=== PATIENT | male | born 1975 | race Caucasian/White ===

== ENCOUNTER 2019-09-26 16:34 | Emergency (ER) | payer MEDICARE, MEDICAID ==
[~2019-09-26] VITALS: Ht 180.3 cm; Wt 125.0 kg
[~2019-09-26 16:34] MED LIST: DIPH25CA83 PO; OMEP20CA15 PO; RISP120S SQ; RISP2TAB3 PO
[2019-09-26] MEDS ORDERED: normal saline 1000ML IV soln IV ONE (16:40)
[2019-09-26 17:14] LABS: BASOPHILS % (AUTO) 0.4 % (0-1); EOSINOPHILS # (AUTO) 0.1 X10'3 (0-0.9); EOSINOPHILS % (AUTO) 0.5 % (0-6); HEMATOCRIT 44.1 % (42.0-52.0); LYMPHOCYTES # (AUTO) 1.5 X10'3 (1.1-4.8); LYMPHOCYTES % (AUTO) 14.2 % (21-51); MEAN CORPUSCULAR HEMOGLOBIN 29.2 PG (27.0-31.0); MEAN CORPUSCULAR VOLUME 85.8 FL (78-98); MONOCYTES # (AUTO) 0.8 X10'3 (0-0.9); MONOCYTES % (AUTO) 7.8 % (2-12); NEUTROPHILS # (AUTO) 7.9 X10'3 (1.8-7.7); NEUTROPHILS % (AUTO) 77.1 % (42-75); PLATELET COUNT 311 X10'3 (140-440); RED BLOOD COUNT 5.14 X10'6 (4.70-6.10); RED CELL DISTRIBUTION WIDTH 12.9 % (11.5-14.5); WHITE BLOOD COUNT 10.3 X10'3 (4.5-11.0)
[2019-09-26 17:28] LABS: ALANINE AMINOTRANSFERASE 57 U/L (12-78); ALBUMIN 4.7 G/DL (3.4-5.0); ALBUMIN/GLOBULIN RATIO 1.4 (1.1-1.5); ALKALINE PHOSPHATASE 75 IU/L (46-116); ANION GAP 19 (8-16); ASPARTATE AMINO TRANSFERASE 30 U/L (10-37); BILIRUBIN,TOTAL 1.6 MG/DL (0.1-1.0); BLOOD UREA NITROGEN 21 MG/DL (7-18); BUN/CREATININE RATIO 13.2 (5.4-32.0); CALCIUM 9.1 MG/DL (8.5-10.1); CHLORIDE 102 MMOL/L (99-107); CREATININE 1.59 MG/DL (0.60-1.10); GLUCOSE 136 MG/DL (70-104); POTASSIUM 3.8 MMOL/L (3.5-5.1); SODIUM 141 MMOL/L (135-145); TOTAL CARBON DIOXIDE 20.2 MMOL/L (24-32); TOTAL PROTEIN 8.1 G/DL (6.4-8.2); eGFR 48 ML/MIN
[2019-09-26] MEDS ORDERED: ziprasidone IM 20mg inj **IM only IM ONE (17:35)
[2019-09-26] MEDS ORDERED: diphenhydrAMINE 50 mg/ml inj IM ONE (17:35)
[2019-09-26 17:40] LABS: ETHANOL < 0.010 GM/DL (0.0-0.010)
[2019-09-26 18:30] VITALS: BP 172/96
--- NOTE | 2019-09-26 18:43 | NUR ---
ASSUMED CARE OF PT FROM Precious BURNETT RN. PT REMAINS, DISORIENTED, PARANOID THOUGHT, DISTURBED THOUGHT PROCESS,AND IS UNCOOPERATIVE. PT STATES HE WANT THE IV OU AND "I DON'T NEED THIS IV PLEASE TAKE IT OUT" HE ATTEMTED TO TAKE IT OUT AND I ASKED HIM TO ALLOW US TO GIVE HIM THE FLUIDS THEN I OUWLD TAKE IT OUT. HE TURNED HIS HEAD AND STARTED AT THE WALL. PT IS NOT INTERACTING APPROPRIATELY. WILL NOT CONFIRM WHAT HIS NAME IS. DOES HAVE A CELL PHONE BUT IT IS WITH BATTERY.
--- NOTE | 2019-09-26 19:16 | NUR ---
DR. LUNA AWARE PT HAS NOT GIVEN URINE YET. PT GIVEN GEODON AND BENEDRYL IM.
--- NOTE | 2019-09-26 19:16 | NUR ---
PT STILL INFUSING HIS 2 LITERS OF NS HIS R AC PIV IS VERY POSITIONAL AND PT KEEPS BENDING IT.
--- NOTE | 2019-09-26 19:20 | NUR ---
pt chnaged into greens
--- NOTE | 2019-09-26 19:32 | NUR ---
belonging list completed pt has not sign he refused
--- NOTE | 2019-09-26 19:53 | NUR ---
Assumed care of pt. and pt. brought to overflow room 25, pt. would not talk to me when I went to assess him, pt. pulled his blanket over his head and turned away from me on the bed. Pt. resting queitly on left side, respirations WNL even and unlabored, no signs or symptoms of distress.
--- NOTE | 2019-09-26 23:03 | NUR ---
Pt. awake and talking non-coherently, pt. able to state name, but unable to answer other questions.
--- NOTE | 2019-09-26 23:41 | NUR ---
Pt. awoke and started talking to him self, rambling non-coherent phrases. Pt. asked if he is able to give a urine sample, pt. responded by saying "I will try" multiple times, before rolling over on left side and closing eyes. Pt. now resting quietly repirations WNL even and unlabored, no signs or symptoms of distress.
--- NOTE | 2019-09-27 01:19 | NUR ---
Pt. resting quietly repirations WNL even and unlabored, no signs or symptoms of distress.
--- NOTE | 2019-09-27 01:43 | NUR ---
pt appears to be sleeping peacefully on back, respirations even and unlabored, no s/s distress at this time.
[2019-09-27] MEDS ORDERED: NO HOME MEDS (02:18)
--- NOTE | 2019-09-27 02:27 | NUR ---
pt awake in bed talking to self. disorganzied and nonsensical statements. pt will not answer direct questions and states "please leave me alone" when this RN trying to assess and ask questions. will continue to montior.
--- NOTE | 2019-09-27 02:55 | NUR ---
pt demanding of staff; requesting 2 sandwiches and 2 tall glasses of water since staff "didnt feed me yesterday and i'm starving." given 1 sandwich and 1 large glass of water. pt states "thats not what I asked for." pt then refuses to answer any further questions. pt asked to keep voice down as he continues to talk to self. states "I don't want any medications." pt up and ambulating around bed and refusing staff request for urine sample. states "theres a bathroom right across the [address] I dont need the cup." pt irritable and hostile.
--- NOTE | 2019-09-27 03:02 | NUR ---
pt ambulated to bathroom without issue. ignored staff when requested pt take urine cup with him to provide sample. pt continues to be hostile and rude towards staff.
--- NOTE | 2019-09-27 03:25 | NUR ---
pt argumentative with staff regarding hold status and providing urine sample. pt no longer appears to be responding any auditory/visual hallucinations. states he does not have to give urine. educated pt on why urine is required for [facility] to see pt in AM and for possible placement if indicated by [facility]. pt continues to argue. pt is now tracking/following conversations without issue. redirect pt to bed where pt is eating sandwich. will continue to attempt to obtain urine sample.
--- NOTE | 2019-09-27 04:43 | NUR ---
pt resting comfortably on left side. pt in supine position. pt is mumbling to self. will continue to montior.
--- NOTE | 2019-09-27 05:20 | NUR ---
WHILE REMOVING PT IV, PT STATES "NO LEAVE IT I NEED IT FOR EVIDENCE." EXPLAINED TO PT HE NO LONGER NEEDS THE IV AND IV MUST BE REMOVED SINCE PT IS IN OVERFLOW. PT ALLOWED REMOVAL OF IV AND THEN BECAME AGITATED WHEN THE TECH ATTEMPTED TO OBTAIN MORNING VITAL SIGNS. PT IS REFUSING VITAL SIGNS AT THIS TIME AND REFUSING TO PROVIDE URINE SAMPLE. REITERATED TO PT THE IMPORTANCE OF THE URINE SAMPLE FOR [facility] TO SEE PT IN THE AM. PT CONTINUES TO BE HOSTILE, NONCOMPLIANT, AND IRRITABLE WITH STAFF STATING "LEAVE ME ALONE. GO AWAY." WILL CONTINUE TO MONITOR PT AND ENCOURAGE COMPLIANCE.
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
--- NOTE | 2019-09-27 06:30 | NUR ---
pt is talking to himself
--- NOTE | 2019-09-27 07:30 | NUR ---
pt talking non stop to self
--- NOTE | 2019-09-27 08:30 | NUR ---
pt is talking to himself. pt does not make sense
--- NOTE | 2019-09-27 09:39 | NUR ---
Breaking primary RN, pt is talking to himself and others who are not there
--- NOTE | 2019-09-27 10:30 | NUR ---
pt refuses to give a urine sample and refuses to have a straight cath.
--- NOTE | 2019-09-27 11:30 | NUR ---
pt continues to talk to himself
--- NOTE | 2019-09-27 12:02 | NUR ---
PT CONTINUES TO TALK TO HISELF AND OTHERS WHO ARE NOT PRESENT
--- NOTE | 2019-09-27 12:30 | NUR ---
pt eating lunch no issues
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
--- NOTE | 2019-09-27 15:00 | NUR ---
pt is talking to himself
--- NOTE | 2019-09-27 17:38 | NUR ---
PT REFUSED VITAL SIGNS.
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
--- NOTE | 2019-09-27 20:04 | NUR ---
The patient is talking loudly to people that are not there. He can be redirected for a very brief period but then begans to talk to himself again.
[2019-09-27 20:29] LABS: URINE AMPHETAMINE SCREEN NEGATIVE (Neg); URINE BARBITUATE SCREEN NEGATIVE (Neg); URINE BENZODIAZEPINES SCREEN NEGATIVE (Neg); URINE CANNABINOID SCREEN NEGATIVE (Neg); URINE COCAINE SCREEN NEGATIVE (Neg); URINE METHADONE SCREEN NEGATIVE (Neg); URINE OPIATE SCREEN NEGATIVE (Neg); URINE PHENCYCLIDINE SCREEN NEGATIVE (Neg)
[2019-09-27] MEDS ORDERED: risperiDONE 2mg tablet PO ONE (20:35)
[2019-09-27] MEDS ORDERED: LORazepam 1 MG tablet PO ONE (20:35)
--- NOTE | 2019-09-27 21:03 | NUR ---
The patient is up and agitated. Stating he can't be held against his will and he doesn't have a criminal record. He did take PO medications a short while ago and he is currently laying back on his bed.
[2019-09-27] MEDS: ziprasidone 20mg capsule PO ONE ×2 (21:45→21:52)
[2019-09-27] MEDS ORDERED: ziprasidone IM 20mg inj **IM only IM ONE (21:55)
--- NOTE | 2019-09-27 22:03 | NUR ---
The patient up and wandering up to closed doors and trying to open them and believes he is hearing some one he knows. He was offered geodon 40mg and he refused. THe patient was difficult to redirect with some posturing. MD made aware of order given for IM geodon. The patient was told that he had to be quiet and respectful of peers and that it was 10 at night and that he also could not wander off the unit and he now appears to suddenly be asleep so IM med being held at this time.
--- NOTE | 2019-09-27 22:36 | NUR ---
The patient appears to be sleeping.
--- NOTE | 2019-09-27 23:24 | NUR ---
The patient is awake and is angry and swearing in response to voices. Attempted one to one with the patient but he replied angerily "get out of my face"
--- NOTE | 2019-09-28 00:06 | NUR ---
The patient is currently resting quietly on his bed.
--- NOTE | 2019-09-28 01:17 | NUR ---
The patient is resting on his bed and talking to people who are not there.
--- NOTE | 2019-09-28 02:17 | NUR ---
The patient continues to talk to people who are not there
--- NOTE | 2019-09-28 03:49 | NUR ---
The patient continues to have converstations with people who are not there
--- NOTE | 2019-09-28 05:51 | NUR ---
The patient continues to have animated converstations with people who are not there
--- NOTE | 2019-09-28 07:21 | NUR ---
asleep no resp dist
[2019-09-28] MEDS ORDERED: ziprasidone 20mg capsule PO SCH (08:00)
--- NOTE | 2019-09-28 08:02 | NUR ---
in bedtalking to self under his breath
--- NOTE | 2019-09-28 09:29 | NUR ---
Resting in bed no resp distress
--- NOTE | 2019-09-28 10:18 | NUR ---
asleep no resp dist
--- NOTE | 2019-09-28 11:41 | NUR ---
Resting in bed no resp distress
--- NOTE | 2019-09-28 12:05 | NUR ---
Carolina santiago from [facility] here to jerald pt. pt refused any additional medication. stated just want to be left alone.
--- NOTE | 2019-09-28 12:11 | NUR ---
Resting in bed no resp dist
--- NOTE | 2019-09-28 13:56 | NUR ---
Resting in bed no resp distress
--- NOTE | 2019-09-28 14:04 | NUR ---
Resting in bed no resp distress
== END 2019-09-28 14:04 ==
LOC: ER 16:34 → EDBD 16:34 → ER 09-28 14:04
DX: F23 Brief psychotic disorder (principal); T68.XXXA Hypothermia, initial encounter
CPT/HCPCS: 36415; 80053; 80305; 80320; 84443; 85025; 96372; 99285; J1200; J3486; J7030

== ENCOUNTER 2019-09-28 13:53 | Inpatient (IN) | payer MEDICARE, MEDICAID ==
[~2019-09-28] VITALS: Ht 180.3 cm; Wt 114.8 kg
[~2019-09-28 13:53] MED LIST changes: +NO HOME MEDS
[2019-09-28] MEDS ORDERED: loperamide 2mg capsule PO PRN (14:45)
[2019-09-28] MEDS ORDERED: mag hydrox/Alum hydrox/simeth 30ml oral suspension PO PRN (14:45)
[2019-09-28] MEDS ORDERED: acetaminophen 325mg tablet PO PRN ×2 (14:45)
--- NOTE | 2019-09-28 14:54 | NUR ---
Admission: Pt admitted on 5150 for DTS at 1435 from ER overflow. Pt escorted up with male staff and security. Pt extremely delusional and paranoid. Pt safety check completed with metal detector wand. Pt arrived without a shirt and hospital scrub pants. Pt refused skin check and refused MRSA swab. Pt would not even enter the shower room for skin check. Pt stating, "I'm not on drugs". Pt brought to room and given sandwich and water. Pt refused admission assessment.
--- NOTE | 2019-09-28 16:03 | NUR ---
CM: Pt's brother called left his contact info: Carlito Cortez [phone] Carlito informed nursing staff that pt had attempted suicide 4-5x when he lived w/Carlito. Pt was going to be conserved in the state of [place] but pt left the state. Carlito is requesting a t/c with . Winter Edwards ASSISTANT WOMENS VOLLEYBALL COACH Addendum: 09/28/19 at 1608 by Winter Edwards Amended: Links added.
--- NOTE | 2019-09-28 16:33 | NUR ---
CM SS had t/c with pt's [employer] CM, per t/c, they've located pt's car, pt's employer will keep pt's job for him, [employer] is working w/pt's landlord to avoid an eviction and landlord appears to be receptive but would like pt to follow healthcare providers' recommendations. SS attempted to give pt the info however, pt was still too anxious and paranoid at this time. SS consulted w/pt's RN, per consultation, RN will attempt to update pt later. SS will meet w/pt tomorrow and engage him in completing a psychosocial assessment. Winter Edwards LCSW Addendum: 09/28/19 at 1644 by Winter dEwards Amended: Links added.
--- NOTE | 2019-09-29 00:21 | NUR ---
Nursing Progress Note: Sukhjinder Legal hold: 5150 Client on involuntary status for GD/DTS. Report received from ALTON Tim nurse with use of SBAR. Why are they here: Pt admitted from over flow and placed on 5150 for DTS. He was [place] in the [place], refused any help stating that he wanted to drown in the river. He was extremely paranoid and delusional. Assessment What has happened this shift: PT was in his room during shift change, appears to be drawing something. States he is doing good. PT refused VS, but was cooperative for all other care. PT states that he feels really emotional and also having some anxiety over his current situation. Asked him if he was willing to take some medication for it but he refused. He states that he is just trying to express his emotions. He talked about how he walked for 2 days. Asked pt why he had walked for 2 days, he states he was trying to get to his trailer after being released from long term but he states it was for nothing because the driver's license examiner and these mental health people came to get me. I was just trying to express my emotions and be accepted by other people. He talked about how when he went to long term, they didnt give his belongings back, such as his wallet with his ID. He also talked about how when he was in his apartment his tub kept overflowing. For some reason, he kept perseverating on his bath tub being over flown. Some of the things he was saying really didnt make much sense. He did get emotional and teary because he felt like everybody was against him and he just wanted to be accepted. He also talked about his ex- and his daughter. He was cooperative during 1:1 physical assessment and states that he felt really sad and just wanted to go to sleep. Will continue to monitor. S/I, H/I: Denies A/VH: Denies Sleep: Pt had trouble sleeping, see sleep assessment for total hours ADL's: Independent Group attendance: None during quality assurance monitor body Were meds taken: None Any med S/E: N/A Mental Status Exam Appearance: Appropriate, wearing green unit scrubs Eye contact: Minimal Behavior: Guarded at first, paranoid, isolative Speech: Clear, normal rate and rhythm Mood: Depressed, anxious, "I'm really sad", becomes teary Affect: Flat Thought process: Disorganized, delusional Thought Content: Events that brought him here, paranoid delusions, his family Cognition: Alert and oriented X3 Insight: Poor Judgment: Poor Interventions PRN's used: None Therapeutic interventions: 1:1 assessment, encouragement to express thoughts and feelings, active listening, monitoring of behaviors with intervention; limit setting and redirection as needed, maintained Q 15 minute safety checks, monitor medication therapeutic and side effects. Restraints/seclusion/emergency medication: N/A Justification of Continued Inpatient Treatment: Pt needs stabilization, she continues to require a safe and supportive environment with medication adjustments and monitoring to decrease risk of rehospitalization. Addendum: 09/29/19 at 0514 by Ashley Patel RN Pt was awake for most of the night talking to himself. Asked pt again if he wanted something to help him sleep or for anxiety, he refused.
[2019-09-29] MEDS: LORazepam 1 MG tablet PO PRN ×2 (07:39→16:45)
[2019-09-29 08:00] VITALS: BP 183/116
[2019-09-29 08:35] LABS: CHOLESTEROL 151 MG/DL (0-200); HDL CHOLESTEROL 38 MG/DL (35-60); LDL CHOLESTEROL 100 MG/DL (50-100); TRIGLYCERIDES 62 MG/DL (20-135)
[2019-09-29 08:37] LABS: HEMOGLOBIN A1C 5.1 % (4.5-6.2)
[2019-09-29] MEDS ORDERED: amLODIPine 5mg tablet PO ONE (12:40)
--- NOTE | 2019-09-29 14:54 | NUR ---
Nursing Progress Note Legal hold: 5150 Client on involuntary status for GD/DTS. Report received from ALTON Díza nurse with use of SBAR. Why are they here: Pt admitted from over flow and placed on 5150 for DTS. He was [place] in the [place], refused any help stating that he wanted to drown in the river. He was extremely paranoid and delusional. Assessment What has happened this shift: During AM assessment this nurse encouraged the pt to allow the techs to obtain his VS. Pt agreed. His BP was 183/116 with a HR of 103. Per Dr. Mireles Amlodipine Besylate 1 tab daily was prescribed around 1300. At 1300 pt refused to have his BP taken and said to this nurse, "you are not going to align me and do this to me; I know what you are trying to do, please leave now." He then shoved the pillow under his head and closed his eyes. This nurse agreed to leave for one hour. An hour later he allowed his BP to be redone it was 181/115 he refused to take the Amlodipine. This morning he agreed to take Ativan 1mg and 45min later took another one. During breakfast this morning he sat on the wall in a chair behind the wall that sits in the middle of the room with his tray in his lap and was seen talking out loud. He was heard saying, "I'm going to need a dyer helperKamaljit." He continued looking up to the ceiling saying things out loud then taking a bite of food then doing it again. It sounds like he is fixated on feather renovator, court, the law, police etc. S/I, H/I: Denies A/VH: Appears to be RIS Sleep: Napped during the afternoon ADL's: Independent Group attendance: No Were Meds taken: Yes he agreed to Ativan 1mg PO x2 Any med S/E: N/A Mental Status Exam Appearance: wore the same green unit scrubs as last night Eye contact: Avoids Behavior: Guarded, hallucinations Speech: Clear, pressured Mood: Depressed; irritable Affect: Blunted Thought process: Disorganized, delusional Thought Content: fixed delusions regarding the law and court proceedings Cognition: A/Ox3 Insight: Poor Judgment: Poor Interventions PRN's used: Ativan Therapeutic interventions: 1:1 assessment, provided therapeutic communication with active listening, monitoring of behaviors; medication administration/education/monitoring for SE's; maintained Q 15 minute safety checks, Restraints/seclusion/emergency medication: N/A Justification of Continued Inpatient Treatment: Pt needs stabilization, he requirers a safe and supportive environment with medication adjustments and monitoring to decrease risk of rehospitalization.
--- NOTE | 2019-09-30 01:02 | NUR ---
Nursing Progress Note: Sukhjinder Legal hold: 5150 Client on involuntary status for GD/DTS. Report received from ALTON Tim nurse with use of SBAR. Why are they here: Pt admitted from over [facility] and placed on 5150 for DTS. He was found in the [place], refused any help stating that he wanted to drown in the river. He was extremely paranoid and delusional. Assessment What has happened this shift: Pt was in his room during shift change. Appeared to be responding to internal stimuli as he was talking to himself. Was observed out of his room for some time. When this RN attempted to perform mental health and physical assessment, pt states NO, just go away, Im tired of you asking. I want you to leave me alone and stop bugging me. He also states that if for some reason he went into cardiac arrest, or any other medical emergency, that he wanted us to do everything possible to keep him alive. He is very irritable and will not answer any of my questions. He also asked this RN whats your title, and name Even though he was informed of this at the beginning of shift. This RN attempted multiple times to work with patient but he only got more irritable. Later on, pt was requesting to have IV fluids, stating that he felt like he was having a heart attack. This RN asked pt a couple of questions to assess his condition but pt refused to answer any questions, and also would not allow for this RN on any tech to perform vital sign. Informed him that there was nothing we could do and encouraged him to drink fluids po. Pt continues to talk to himself throughout the night but refuses any kind of medication offered to him. Will continue to monitor. S/I, H/I: Unable to assess A/VH: Pt would not answer but is observed responding to internal stimuli, talking to himself, naming several different people Sleep: As of this note, pt has not had any sleep. ADL's: Independent Group attendance: None during estate tax examiner Were meds taken: None, pt refused all prn medications offered Any med S/E: N/A Mental Status Exam Appearance: Appropriate, personal clothing Eye contact: Good, direct Behavior: Resistive to care, paranoid, irritable Speech: Clear, normal rate and rhythm Mood: Depressed, labile, angry at times Affect: Flat Thought process: Disorganized, delusional Thought Content: Wanting IV fluids, wants to be left alone, has conversation with unknown people Cognition: Alert and oriented X3 Insight: Poor Judgment: Poor Interventions PRN's used: None Therapeutic interventions: 1:1 assessment, encouragement to express thoughts and feelings, active listening, monitoring of behaviors with intervention; limit setting and redirection as needed, maintained Q 15 minute safety checks, monitor medication therapeutic and side effects. Restraints/seclusion/emergency medication: N/A Justification of Continued Inpatient Treatment: Pt needs stabilization, she continues to require a safe and supportive environment with medication adjustments and monitoring to decrease risk of rehospitalization.
[2019-09-30] MEDS: risperiDONE 0.5mg tablet PO SCH ×2 (08:00→20:00)
[2019-09-30] MEDS: amLODIPine 5mg tablet PO SCH (08:00)
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
[2019-10-01] MEDS: amLODIPine 5mg tablet PO SCH (08:00)
[2019-10-01] MEDS: risperiDONE 0.5mg tablet PO SCH ×2 (08:00→17:47)
--- NOTE | 2019-10-01 08:00 | NUR ---
Pt refused VS, assessment and medications.
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
[2019-10-01] MEDS ORDERED: LORazepam 1 MG tablet PO ONE (17:40)
[2019-10-01] MEDS ORDERED: olanzapine 10mg tablet PO STA (17:40)
[2019-10-01] MEDS: LORazepam 1 MG tablet PO PRN (17:47)
[2019-10-01] MEDS: diphenhydrAMINE 25mg capsule PO PRN (17:48)
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
[2019-10-02] MEDS: amLODIPine 5mg tablet PO SCH (08:00)
[2019-10-02] MEDS: risperiDONE 0.5mg tablet PO SCH ×2 (08:00→20:46)
--- NOTE | 2019-10-02 08:30 | NUR ---
Pt refused VS's today
[2019-10-02] MEDS ORDERED: olanzapine 10mg tablet PO ONE (09:15)
[2019-10-02] MEDS ORDERED: LORazepam 1 MG tablet PO ONE (09:15)
[2019-10-02] MEDS: diphenhydrAMINE 25mg capsule PO PRN ×2 (09:25→20:46)
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
[2019-10-02] MEDS ORDERED: OLANZapine 5mg rapidly disint. tablet PO PRN (19:25)
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
[2019-10-03] MEDS: risperiDONE 0.5mg tablet PO SCH ×2 (08:00→20:00)
[2019-10-03] MEDS: amLODIPine 5mg tablet PO SCH (08:00)
[2019-10-03] MEDS ORDERED: OLANZapine 2.5MG tablet PO PRN (17:00)
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
[2019-10-04] MEDS: amLODIPine 5mg tablet PO SCH (08:00)
[2019-10-04] MEDS: risperiDONE 0.5mg tablet PO SCH (08:00)
[2019-10-04] MEDS ORDERED: polyethylene glycol 3350 17gm powd pack PO ONE (09:05)
--- NOTE | 2019-10-04 09:35 | NUR ---
CM Presenting Issues: Pt still refuses to sign GEORGE to allow SS to coordinate services with community providers and/or speak with family members. Interventions: SS received t/c from pt's [facility] CM with update re pt's housing issues, [facility] CM reports that pt may loose his housing if he refuses to take meds. Pt has a [place] Hearing today, it is expected that the Court will order pt to comply with medication treatment. Plan: SS will continue to monitor & provide 1:1 support for pt during his stay @ [facility]. Winter Edwards LCSW Addendum: 10/05/19 at 0945 by Winter Edwards Amended: Links added.
[2019-10-04] MEDS ORDERED: RISPERIDONE SQ ONE ×2 (14:05→14:30)
[2019-10-04] MEDS ORDERED: OLANZapine 2.5MG tablet PO ONE (14:40)
[2019-10-04] MEDS ORDERED: OLANZapine **IM** 10 mg inj. IM ONE (14:40)
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
[2019-10-04] MEDS: magnesium hydroxide 30ml (MOM) UD suspension PO PRN (20:40)
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
[2019-10-05] MEDS: amLODIPine 5mg tablet PO SCH (08:00)
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
--- NOTE | 2019-10-05 11:00 | NUR ---
CM Presenting Issues: Pt was reissed yesterday, and is isolating in his room. Interventions: SS met w/pt at bedside to provide 1:1 support, pt was staring out the window and talking to himself, he acknowledged SS w/o making eye contact, and states, "could you leave I don't want to talk to a social work lecturer right now". Plan: SS will continue to check-in w/pt to monitor progress. Winter Edwards LCSW Addendum: 10/05/19 at 1105 by Winter Edwards Amended: Links added.
--- NOTE | 2019-10-05 13:04 | NUR ---
Great appetite, eating well, 75-100% PO intake of regular diet. 10/04 last BM. No nutrition problem. Rec: 1. continue regular diet 2. bowel care as needed 3. weekly wts Addendum: 10/05/19 at [address] Amended: Links added.
--- NOTE | 2019-10-05 16:40 | NUR ---
Nursing Progress Note: Legal hold: 5250 Client on involuntary status for GD/DTS. Report received from RN with use of SBAR. Why are they here: Pt admitted from over flow and placed on 5150 for DTS. He was [place] the [place], refused any help stating that he wanted to drown in the river. He was extremely paranoid and delusional. Assessment What has happened this shift: Received Pt awake and talking to himself in his room. Pt was speaking angrily and threateningly to AHs or some internal stimuli. Able to stop and answer with one word to a question. Pt refused vitals and ate breakfast in community room. Pt refused his one AM med (amlodipine), stating I dont have high blood pressure. Attempts to explain were met with hostolity and resistance to care. Pt spent most of morning in room talking while looking out the window. He became less irritable and asked for water multiple times throughout the day. Got pts weekly weight and he was cooperative and thankful for getting him water. Pt cooperative around meals. Overall resistive to care and paranoid. S/I, H/I: Denies A/VH: Talks/yells to self Sleep: None this shift ADL's: Independent Group attendance: No Were Meds taken: Pt refused Any med S/E: N/A Mental Status Exam Appearance: Casual/ Dodgers shirt and shorts Eye contact: Poor Behavior: Guarded, Paranoid Speech: Clear, pressured Mood: Labile Affect: Blunted Thought process: Disorganized, paranoid Thought Content: Anger at voices, getting water Cognition: A/Ox3 Insight: Impaired Judgment: Impaired Interventions PRN's used: Therapeutic interventions: Encouraged and educated pt to the purpose of the AM, 1:1 assessment; provided therapeutic communication with active listening; monitoring of behaviors; provided medication administration/education/monitoring; maintained Q 15 minute safety checks. Restraints/seclusion/emergency medication: N/A Justification of Continued Inpatient Treatment: Pt continues to need mental health stabilization, he requirers a safe and supportive environment with medication adjustments and monitoring to decrease risk of rehospitalization.
--- NOTE | 2019-10-06 00:54 | NUR ---
Nursing Progress Note: Legal hold: 5250 Client on involuntary status for GD/DTS. Report received from ALTON Bernal nurse with use of SBAR. Why are they here: Pt admitted from over flow and placed on 5150 for DTS. He was found in the [place], refused any help stating that he wanted to drown in the river. He was extremely paranoid and delusional. Assessment What has happened this shift: Pt was sitting up in his chair in his room at shift change looking out the window, talking to himself. Write approaches pt, but he refuses to turn around and look at marketing writer. He also refuses vital signs. When asked if he is experiencing any AH/VH he responds, "no never, I do not have any of that I am not schizophrenic." He is delusional and tangential but remains pleasant. He is still very resistive to care and refuses 1:1 physical assessment. S/I, H/I: Does not endorse A/VH: +A/VH, Will not endorse but is observed to respond to stimuli Sleep: See Sleep Assessment. ADL's: Independent Group attendance: N/A Were meds taken: No meds scheduled HS Any med S/E: None reported nor observed Mental Status Exam Appearance: Appropriate, personal clothing and nonskid socks Eye contact: Fair Behavior: Isolating to his room Speech: Clear Mood: Irritable Affect: Flat Thought process: Paranoid, thought blocking Thought Content: not trusting of staff Cognition: A/Ox2 Insight: Poor Judgment: Poor Interventions PRN's used: Therapeutic interventions: monitoring of behaviors with intervention; limit setting and redirection as needed, maintained Q 15 minute safety checks, monitor medication therapeutic and side effects. Restraints/seclusion/emergency medication: NA Justification of Continued Inpatient Treatment: Pt needs stabilization, he continues to require a safe and supportive environment with medication adjustments and monitoring to decrease risk of re-hospitalization. Per PA notes, pt lacks insight to his illness and once stabilized will return home if landlord accepts.
[2019-10-06] MEDS: amLODIPine 5mg tablet PO SCH (08:00)
--- NOTE | 2019-10-06 16:07 | NUR ---
Nursing Progress Note: [place] Legal hold: 5250 Client on involuntary status for GD/DTS. Report received from Kiki DANG Why are they here: Pt admitted from over flow and placed on 5150 for DTS. He was [place] the [place], refused any help stating that he wanted to drown in the river. He was extremely paranoid and delusional. Assessment What has happened this shift: Pt was sitting up in his chair in his room at shift change looking out the window, talking to himself. Client eye contact is minimal and he is not interested in talking to staff or making his needs known. He refused vital signs and medications this am and tends to isolate in his room. No behavioral issues. Client is visible on the unit and still appears to be actively responding to internal stimuli. Client was approached this afternoon with the idea of changing rooms. Client became angry and demanded not to be moved stating, " I am not leaving, I am safe here". Insight is very limited and client still feels as though he is being held under false pretenses and wants to be released. Client isolated in his room this afternoon with no behavioral challenges. S/I, H/I: Does not endorse A/VH: +A/VH, Will not endorse but is observed to respond to stimuli Sleep: See Sleep Assessment. ADL's: Independent Group attendance: no Were meds taken: no Any med S/E: None reported nor observed Mental Status Exam Appearance: Appropriate, personal clothing and nonskid socks Eye contact: Fair Behavior: Isolating to his room Speech: Clear Mood: Irritable Affect: Flat Thought process: Paranoid, thought blocking Thought Content: not trusting of staff Cognition: A/Ox2 Insight: Poor Judgment: Poor Interventions PRN's used: Therapeutic interventions: monitoring of behaviors with intervention; limit setting and redirection as needed, maintained Q 15 minute safety checks, monitor medication therapeutic and side effects. Restraints/seclusion/emergency medication: NA Justification of Continued Inpatient Treatment: Pt needs stabilization, he continues to require a safe and supportive environment with medication adjustments and monitoring to decrease risk of re-hospitalization. Per PA notes, pt lacks insight to his illness and once stabilized will return home if landlord accepts.
[2019-10-06] MEDS ORDERED: haloperidol lactate 5mg/ml inj IM PRN (16:50)
[2019-10-06] MEDS: risperiDONE 0.5mg tablet PO SCH (21:23)
--- NOTE | 2019-10-07 05:13 | NUR ---
Nursing Progress Note: Legal hold: 5250 Client on involuntary status for GD/DTS. Report received from RN nurse with use of SBAR. Why are they here: Pt admitted from over [facility] and placed on 5150 for DTS. He was [place] in the [place], refused any help stating that he wanted to drown in the river. He was extremely paranoid and delusional. Assessment What has happened this shift: Patient observed laying in bed at the beginning of shift. Remains resistive to care. Patient denies SI, HI, A/VH but appears preoccupied. He refused to answer further questions, stating, "that is personal." He was compliant with medication but tossed med cup at told poem writer, "get out now." Patient refused HS snack and remained in bed throughout this shift. Does not appear to be having difficulty sleeping. S/I, H/I: Denied A/VH: Denied but appears preoccupied Sleep: Refer to sleep assessment ADL's: Independent Group attendance: No groups this shift Were meds taken: Yes Any med S/E: None reported nor observed Mental Status Exam Appearance: Appropriate, personal clothing and nonskid socks Eye contact: Fair Behavior: Isolating to his room, resistive to care Speech: Clear, audible Mood: Irritable Affect: Flat Thought process: Paranoid, thought blocking Thought Content: Unable to assess Cognition: A/Ox2 Insight: Poor Judgment: Poor Interventions PRN's used: None Therapeutic interventions: monitoring of behaviors with intervention; limit setting and redirection as needed, maintained Q 15 minute safety checks, monitor medication therapeutic and side effects. Restraints/seclusion/emergency medication: NA Justification of Continued Inpatient Treatment: Pt needs stabilization, he continues to require a safe and supportive environment with medication adjustments and monitoring to decrease risk of re-hospitalization. Per PA notes, pt lacks insight to his illness and once stabilized will return home if landlord accepts.
[2019-10-07] MEDS: risperiDONE 0.5mg tablet PO SCH ×2 (07:40→20:51)
[2019-10-07] MEDS: amLODIPine 5mg tablet PO SCH (08:00)
--- NOTE | 2019-10-07 17:23 | NUR ---
Nursing Progress Note: Legal hold: 5250 Client on involuntary status for GD/DTS. Report received from Kiki DANG Why are they here: Pt admitted from over flow and placed on 5150 for DTS. He was found in the [place], refused any help stating that he wanted to drown in the river. He was extremely paranoid and delusional. Assessment What has happened this shift: Patient in bed at shift change talking to himself laying in bed. Patient stated he would not take his medications and attempted to refuse. Refused his Norvasc, but ended up taking Risperdone. Patient refused vitals. Patient spent most of the day talking out loud to himself, but was able to be out of his room more walking hallways and sitting in community room. Patient does not want to interact with staff, and wishes to be left alone. S/I, H/I: Denies. A/VH: Denies, but appears to be responding to internal stimuli. Sleep: No naps. ADL's: Independent Group attendance: no Were meds taken: Yes, except Norvasc. Any med S/E: None reported nor observed Mental Status Exam Appearance: Disheveled, wearing same clothing. Eye contact: Avoids Behavior: More social today. In community room appropriate. Speech: Clear, loud. Mood: Irritable Affect: Labile. Thought process: Paranoid, thought blocking Thought Content: not trusting of staff. Not wanting to take medications. Cognition: A/Ox2 Insight: Poor Judgment: Poor Interventions PRN's used: None. Therapeutic interventions: monitoring of behaviors with intervention; limit setting and redirection as needed, maintained Q 15 minute safety checks, monitor medication therapeutic and side effects. Restraints/seclusion/emergency medication: NA Justification of Continued Inpatient Treatment: Pt needs stabilization, he continues to require a safe and supportive environment with medication adjustments and monitoring to decrease risk of re-hospitalization. Per PA notes, pt lacks insight to his illness and once stabilized will return home if landlord accepts.
--- NOTE | 2019-10-08 04:36 | NUR ---
Nursing Progress Note: Legal hold: 5249 Client on involuntary status for GD/DTS. Report received from Gabe DAVEY nurse with use of SBAR. Why are they here: Pt admitted from over flow and placed on 5150 for DTS. [place] was [place], refused any help stating that he wanted to drown in the river. He was extremely paranoid and delusional. Assessment What has happened this shift: Patient walking the unit at the beginning of shift. Remains resistive to care but more pleasant with staff this shift. He denies SI, HI, A/VH but observed responding to IS. During med pass patient asked, "Can I just take the water and not the Risperdal?" Business Solutions Director explained his riese to him and he was pleasant and took the medication. At this time patient stated, "I'm going to do what you guys want me to do and stay here until my business lawyer can get everything cleared up and make sure I have somewhere to go." and thanked chart writer for his bag of chips and water that were provided. Later in the shift patient became agitated and explained, "I'm suing everyone that makes me take medication and threatens me with shots." He pointed to chart writer, "even you." Business Solutions Director walked with patient back to his room but he did not want to talk. Patient remained in bed and does not appear to be having difficulty sleeping. S/I, H/I: Denied A/VH: Responding to IS Sleep: Refer to sleep assessment ADL's: Independent Group attendance: No groups this shift Were meds taken: Yes Any med S/E: None reported nor observed Mental Status Exam Appearance: Appropriate, personal clothing and nonskid socks Eye contact: Fair Behavior: Isolating, resistive to care, more pleasant but remains irritable Speech: Clear, audible Mood: Labile Affect: Labile Thought process: Paranoid delusions, thought blocking Thought Content: Drawbridge Tender finding him housing and "clearing everything up," doesn't want to be taking medication, suing Cognition: A/Ox2 Insight: Poor Judgment: Poor Interventions PRN's used: None Therapeutic interventions: monitoring of behaviors with intervention; limit setting and redirection as needed, maintained Q 15 minute safety checks, monitor medication therapeutic and side effects. Restraints/seclusion/emergency medication: NA Justification of Continued Inpatient Treatment: Pt needs stabilization, he continues to require a safe and supportive environment with medication adjustments and monitoring to decrease risk of re-hospitalization. Per PA notes, pt lacks insight to his illness and once stabilized will return home if landlord accepts.
[2019-10-08] MEDS: risperiDONE 0.5mg tablet PO SCH ×2 (07:53→20:54)
[2019-10-08] MEDS: amLODIPine 5mg tablet PO SCH (08:00)
--- NOTE | 2019-10-08 16:56 | NUR ---
Nursing Progress Note: Legal hold: 5250 Client on involuntary status for GD/DTS. Report received from Kiki DANG Why are they here: Pt admitted from over flow and placed on 5150 for DTS. He was [place] the [place], refused any help stating that he wanted to drown in the river. He was extremely paranoid and delusional. Assessment What has happened this shift: Patient awake sitting in group room shortly after shift change. Patient is argumentative about taking his morning Risperidone. Charge nurse attended due to patients high volume conversation. Patient eventually took his medications, and walked around the hallway saying Youre against me, youre against me... Patient is resistive to care and does not want staff to do anything for him except certain requests such as water or getting him blankets. He remains resistive to care. S/I, H/I: Denies. A/VH: Denies, but appears to be responding to internal stimuli. Sleep: No naps. ADL's: Independent Group attendance: no Were meds taken: Yes, except Norvasc. Any med S/E: None reported nor observed Mental Status Exam Appearance: Patient wearing same clothing as yesterday, disheveled. Eye contact: Avoids Behavior: Agitated, resistive to care. Speech: Clear, loud. Mood: Irritable Affect: Labile. Thought process: Paranoid, thought blocking Thought Content: not trusting of staff. Not wanting to take medications. Cognition: A/Ox2 Insight: Poor Judgment: Poor Interventions PRN's used: None. Therapeutic interventions: monitoring of behaviors with intervention; limit setting and redirection as needed, maintained Q 15 minute safety checks, monitor medication therapeutic and side effects. Restraints/seclusion/emergency medication: NA Justification of Continued Inpatient Treatment: Pt needs stabilization, he continues to require a safe and supportive environment with medication adjustments and monitoring to decrease risk of re-hospitalization. Per PA notes, pt lacks insight to his illness and once stabilized will return home if landlord accepts.
--- NOTE | 2019-10-09 03:51 | NUR ---
Nursing Progress Note: Legal hold: 525 Client on involuntary status for GD/DTS. Report received from Gabe DAVEY nurse with use of SBAR. Why are they here: Pt admitted from over flow and placed on 5150 for DTS. He was [place] the [place], refused any help stating that he wanted to drown in the river. He was extremely paranoid and delusional. Assessment What has happened this shift: Patient laying in bed at the beginning of shift where he has remained at this time. Continues to resist care, refused VS and assessments. Pleasant and cooperative with medication. While production underwriter provided his medication he stated, "I don't want to involve you in the investigation. You can just set my meds right there and come back in 15-30 minutes. I will take them." Audiometric Technician explained I had to watch him take them and he replied, "Ok, I tried not to involve you don't be mad at me." Audiometric Technician asked about the "investigation" but patient reported, "it's private." Patient did not wish to leave room for HS snack and was provided chips and water per request; quickly returned to bed and does not appear to be having difficulty sleeping. S/I, H/I: Denied A/VH: Responding to IS Sleep: Refer to sleep assessment ADL's: Independent Group attendance: No groups this shift Were meds taken: Yes Any med S/E: None reported nor observed Mental Status Exam Appearance: Appropriate, personal clothing and nonskid socks Eye contact: Fair Behavior: Isolating, resistive to care, more pleasant Speech: Clear, audible Mood: Anxious Affect: Blunted Thought process: Paranoid delusions, thought blocking Thought Content: Investigation Cognition: A/Ox2 Insight: Poor Judgment: Poor Interventions PRN's used: None Therapeutic interventions: monitoring of behaviors with intervention; limit setting and redirection as needed, maintained Q 15 minute safety checks, monitor medication therapeutic and side effects. Restraints/seclusion/emergency medication: NA Justification of Continued Inpatient Treatment: Pt needs stabilization, he continues to require a safe and supportive environment with medication adjustments and monitoring to decrease risk of re-hospitalization. Per PA notes, pt lacks insight to his illness and once stabilized will return home if landlord accepts.
[2019-10-09] MEDS: risperiDONE 0.5mg tablet PO SCH ×2 (07:35→20:43)
[2019-10-09] MEDS: amLODIPine 5mg tablet PO SCH (07:37)
--- NOTE | 2019-10-09 16:47 | NUR ---
Nursing Progress Note: Legal hold: 5250 Client on involuntary status for GD/DTS. Report received from RN with use of SBAR. Why are they here: Pt admitted from over flow and placed on 5150 for DTS. He was [place] the [place], refused any help stating that he wanted to drown in the river. He was extremely paranoid and delusional. Assessment What has happened this shift: Received Pt in bed sleeping w/o distress at change of shift. Pt awoke and refused vitals. Pt was resistive to taking meds, but agreed after discussion. Pt cooperative and in overall pleasant mood and tolerated assessment questions well. Watched TV in community room and ate breakfast and all meals with others. Pt isolated in morning to room and talked to himself often as if responding to AHs. Pt polite and often asked for water. He thanked staff often for meeting of various needs. Spent some time walking halls with blanket wrapped around him. S/I, H/I: Denies A/VH: Talks/converses with self Sleep: Napped ADL's: Independent Group attendance: No Were Meds taken: Yes Any med S/E: N/A Mental Status Exam Appearance: Casual/ Dodgers shirt and shorts Eye contact: Poor Behavior: Pleasant/polite Speech: Clear, tangential Mood: Euthymic Affect: Blunted Thought process: Disorganized Thought Content: Talking with AHs, getting water Cognition: A/Ox3 Insight: Impaired Judgment: Impaired Interventions PRN's used: None Therapeutic interventions: Encouraged and educated pt to the purpose of the AM, 1:1 assessment; provided therapeutic communication with active listening; monitoring of behaviors; provided medication administration/education/monitoring; maintained Q 15 minute safety checks. Restraints/seclusion/emergency medication: N/A Justification of Continued Inpatient Treatment: Pt continues to need mental health stabilization, he requires a safe and supportive environment with medication adjustments and monitoring to decrease risk of re-hospitalization.
--- NOTE | 2019-10-10 04:06 | NUR ---
Nursing Progress Note: Legal hold: 525 Client on involuntary status for GD/DTS. Report received from Gabe DAVEY nurse with use of SBAR. Why are they here: Pt admitted from over flow and placed on 5150 for DTS. He was [place] the [place], refused any help stating that he wanted to drown in the river. He was extremely paranoid and delusional. Assessment What has happened this shift: Patient laying in his bed awake at the beginning of shit. Patient quickly came out of his room after PCT provided water and expressed irritability with staff saying, "sleep tight" to him. Continued to express how "inappropriate" it was. Patient walked back to his room by sign writer hand and continued to express irritability as he thought sign writer hand had said it and felt sign writer hand was "playing head games." Shortly after patient asked for paper towels and toilet paper. Booking Clerk got him both and let him no and he responded, "why can't you just do it and not say anything?" He continues to refuse VS and assessment as everything is "private." He continues to respond to IS while laying in bed. During med pass patient was pleasant and cooperative and took medication without incident. He questioned the name and dose and said and "OK." Booking Clerk provided chips for HS snack in his room as he appears to enjoy them and he was thankful. Patient remained in his bedroom majority of this shift; does not appear to be having difficulty sleeping. S/I, H/I: Denied A/VH: Responding to IS Sleep: Refer to sleep assessment ADL's: Independent Group attendance: No groups this shift Were meds taken: Yes, without incident Any med S/E: None reported nor observed Mental Status Exam Appearance: Appropriate, personal clothing and nonskid socks Eye contact: Fair Behavior: Isolating, resistive to care Speech: Clear, audible Mood: Labile Affect: Blunted Thought process: Paranoid delusions, thought blocking Thought Content: Investigation, refuses to answer question as they are "private" Cognition: A/Ox2 Insight: Poor Judgment: Poor Interventions PRN's used: None Therapeutic interventions: monitoring of behaviors with intervention; limit setting and redirection as needed, maintained Q 15 minute safety checks, monitor medication therapeutic and side effects. Restraints/seclusion/emergency medication: NA Justification of Continued Inpatient Treatment: Pt needs stabilization, he continues to require a safe and supportive environment with medication adjustments and monitoring to decrease risk of re-hospitalization. Per PA notes, pt lacks insight to his illness and once stabilized will return home if landlord accepts.
[2019-10-10] MEDS: amLODIPine 5mg tablet PO SCH (08:00)
[2019-10-10] MEDS: risperiDONE 0.5mg tablet PO SCH ×2 (08:20→20:37)
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
--- NOTE | 2019-10-10 16:11 | NUR ---
CM Presenting Issues: pt's rent is due on the first of the month, pt's [facility] CM need pt to consent for [facility] to pay his rent and coordinate repairs with the landlord. Interventions: SS met w/pt and attempted to engage pt in discussion re his apartment repairs needs and rent, pt refused to speak w/SS. Plan: SS will try again tomorrow. Winter Edwards LCSW Addendum: 10/10/19 at 1615 by Winter Edwards Amended: Links added.
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
[2019-10-11] MEDS: amLODIPine 5mg tablet PO SCH (08:00)
[2019-10-11] MEDS: risperiDONE 0.5mg tablet PO SCH ×2 (08:26→20:31)
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
[2019-10-12] MEDS: risperiDONE 0.5mg tablet PO SCH ×2 (07:52→20:11)
[2019-10-12] MEDS: amLODIPine 5mg tablet PO SCH (08:00)
--- NOTE | 2019-10-12 09:25 | NUR ---
Reassessment: Pt continues with 75-100% PO intake meeting nutrient needs. LBM 10/07 however unsure of when LBM was as pt wont state when LBM was per physical assessment. Pt documented as confused, A/O x 2, and resistive to care. PRN bowel care available, last given 10/03. D/w dietary to send prunes with lunch today to assist with bowel regularity. Will continue to follow and monitor need for further nutrition intervention. Rec: 1. continue regular diet 2. bowel care as needed; monitor need for additional 3. weekly wts Addendum: 10/12/19 at [address] Amended: Links added.
[2019-10-12] MEDS: LORazepam 1 MG tablet PO PRN (11:38)
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
[2019-10-12] MEDS: calcium carbonate 500mg chew tablet PO PRN (21:52)
[2019-10-12] MEDS: diphenhydrAMINE 25mg capsule PO PRN (22:14)
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
[2019-10-13] MEDS: risperiDONE 0.5mg tablet PO SCH ×2 (07:17→19:23)
[2019-10-13] MEDS: amLODIPine 5mg tablet PO SCH (07:47)
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
[2019-10-13] MEDS: sulfamethoxazole/trimethoprim DS (800/160mg) tablet PO SCH (19:23)
[2019-10-13] MEDS: magnesium hydroxide 30ml (MOM) UD suspension PO PRN (19:46)
[2019-10-13] MEDS: diphenhydrAMINE 25mg capsule PO PRN (20:05)
--- NOTE | 2019-10-14 00:08 | NUR ---
Nursing Progress Note: Sukhjinder Legal hold: 5250 Client on involuntary status for GD/DTS. Report received from ALTON Tim nurse with use of SBAR. Why are they here: Pt admitted from over [facility] and placed on 5150 for DTS. He was [place] in the [place], refused any help stating that he wanted to drown in the river. He was extremely paranoid and delusional. Assessment What has happened this shift: Pt was in his room during shift change. States that he was doing good. still working on the investigation. He was observed more out of his room today as he spend some time in rec room watching TV and socializing with other patients. Pt was also more amicable to his physical assessment and took al his HS meds, including his antibiotic and some prns, (Maalox and Benadryl). He denies any A/VH, S/I, or H/I. He does talk about some scars that he has on his left arm. States that when he was at [facility] they put a chip on him. He states that he is trying to figure out how to take it out. Pt also states that he did the cut but it was only to draw attention to himself when he split up with his ex-. Did get somewhat teary as he looked like he wanted to cry. He does state Im not going to lie though, this one up here I did do it because I wanted to hurt myself. Pt appears anxious as evident by his restlessness but refused any prns for this. Pt is somewhat demanding and tells this health underwriter make sure that you communicate better with me next time." After he received his medication, he retired to bed. S/I, H/I: Denied A/VH: Denies, was not observed responding to internal stimuli Sleep: Currently sleeping, see sleep assessment for total hours ADL's: Independent Group attendance: No groups this shift Were meds taken: Yes Any med S/E: None reported nor observed Mental Status Exam Appearance: Malodorous, personal clothing and nonskid socks Eye contact: Fair Behavior: More social, somewhat restless and anxious, demanding Speech: Clear, audible Mood: Appears depressed and paranoid Affect: Blunted Thought process: Paranoid delusions, disorganized Thought Content: Believes he has a chip implanted in his left arm, his ex-, meds Cognition: A/Ox2 Insight: Poor Judgment: Poor Interventions PRN's used: Benadryl, Milk of magnesium Therapeutic interventions: monitoring of behaviors with intervention; limit setting and redirection as needed, maintained Q 15 minute safety checks, monitor medication therapeutic and side effects. Restraints/seclusion/emergency medication: NA Justification of Continued Inpatient Treatment: Pt needs stabilization, he continues to require a safe and supportive environment with medication adjustments and monitoring to decrease risk of re-hospitalization. Per PA notes, pt lacks insight to his illness and once stabilized will return home if landlord accepts.
[2019-10-14] MEDS: LORazepam 1 MG tablet PO PRN ×2 (07:50→15:58)
[2019-10-14] MEDS: risperiDONE 0.5mg tablet PO SCH ×2 (07:50→20:56)
[2019-10-14] MEDS: sulfamethoxazole/trimethoprim DS (800/160mg) tablet PO SCH ×2 (07:51→20:56)
[2019-10-14] MEDS: amLODIPine 5mg tablet PO SCH (08:00)
[2019-10-14] MEDS: calcium carbonate 500mg chew tablet PO PRN (13:07)
--- NOTE | 2019-10-14 14:34 | NUR ---
Nursing Progress Note Legal hold: 5250 Client on involuntary status for GD/DTS. Report received from ALTON Monzon nurse with use of SBAR. Why are they here: Pt admitted from over flow and placed on 5150 for DTS. He was found in the [place] river, refused any help stating that he wanted to drown in the river. He was extremely paranoid and delusional. Assessment What has happened this shift: Pt stayed in his room most of the shift. He was med complaint with his psych med and antibiotic. Pt refused VS's Norvasc held. Pt asked this scientific technical writer to, "call my older daughter and ask her to call my younger daughter." Charge nurse, Meeta took care of his request. Pt observed in the Rec Rm watching TV in the late afternoon. Pt refuses to engage in conversation with this nurse and YOSVANY Steele. S/I, H/I: Denied A/VH: Denies Sleep: On and off in the morning ADL's: Independent Group attendance: No Were Meds taken: Yes, Norvasc held as client refused vital signs. Any med S/E: None reported nor observed Mental Status Exam Appearance: showered , personal clothing and nonskid socks Eye contact: Fair Behavior: Isolating, somewhat restless and anxious Speech: Clear, audible Mood: Appears depressed and paranoid Affect: Blunted Thought process: Paranoid delusions Thought Content: his daughter and leaving Cognition: A/Ox2 Insight: Poor Judgment: Poor Interventions PRN's used: N/A Therapeutic interventions: provided 1:1 assessment, encouraged and prompted pt to engage in conversation, provided therapeutic communication and active listening, medications administration/education/monitoring and monitored q15 min. safety checks. Restraints/seclusion/emergency medication: NA Justification of Continued Inpatient Treatment: Pt needs stabilization, he continues to require a safe and supportive environment with medication adjustments and monitoring to decrease risk of re-hospitalization. Per PA notes, pt lacks insight to his illness and once stabilized will return home if landlord accepts.
--- NOTE | 2019-10-15 00:05 | NUR ---
Nursing Progress Note: Sukhjinder Legal hold: 5250 Client on involuntary status for GD/DTS. Report received from ALTON Tim nurse with use of SBAR. Why are they here: Pt admitted from over flow and placed on 5150 for DTS. He was found in the [place] river, refused any help stating that he wanted to drown in the river. He was extremely paranoid and delusional. Assessment What has happened this shift: Pt was in his room resting during shift change. States he is doing good. Pt was isolative to his room for the majority of the evening. He did nap for a while but woke up for his medication which he took without any issues. He refused his vital again and would not allow this RN to perform physical assessment. Pt was observed responding to internal stimuli. He was talking to himself when this RN came into his room. He says to whoever he was talking to No Im not getting any help from you. After he took his medication states that he was going to go back to sleep and he would ask for Benadryl if he needed it. Will continue to monitor. S/I, H/I: Denied A/VH: Denies, was observed responding to internal stimuli Sleep: Currently sleeping, see sleep assessment for total hours ADL's: Independent Group attendance: No groups this shift Were meds taken: Yes Any med S/E: None reported nor observed Mental Status Exam Appearance: Malodorous, personal clothing and nonskid socks Eye contact: Fair Behavior: Isolative to his room, somewhat paranoid Speech: Clear, audible Mood: Fatigued, appears anxious Affect: Flat Thought process: Paranoid delusions, disorganized Thought Content: Meds, wanting to go back to sleep, having a conversation with an unknown person Cognition: A/Ox2 Insight: Poor Judgment: Poor Interventions PRN's used: None Therapeutic interventions: monitoring of behaviors with intervention; limit setting and redirection as needed, maintained Q 15 minute safety checks, monitor medication therapeutic and side effects. Restraints/seclusion/emergency medication: NA Justification of Continued Inpatient Treatment: Pt needs stabilization, he continues to require a safe and supportive environment with medication adjustments and monitoring to decrease risk of re-hospitalization. Per PA notes, pt lacks insight to his illness and once stabilized will return home if landlord accepts.
[2019-10-15] MEDS: amLODIPine 5mg tablet PO SCH (08:00)
[2019-10-15] MEDS: sulfamethoxazole/trimethoprim DS (800/160mg) tablet PO SCH ×2 (08:22→19:16)
[2019-10-15] MEDS: risperiDONE 0.5mg tablet PO SCH (08:22)
[2019-10-15] MEDS: magnesium hydroxide 30ml (MOM) UD suspension PO PRN ×2 (08:32→14:26)
--- NOTE | 2019-10-15 09:17 | NUR ---
Pt refuses to allow staff to take his VS or do his weight.
--- NOTE | 2019-10-15 13:04 | NUR ---
Nursing Progress Note Legal hold: 5250 Client on involuntary status for GD/DTS. Report received from ALTON Monzon nurse with use of SBAR. Why are they here: Pt admitted from over flow and placed on 5150 for DTS. He was found in the [place] river, refused any help stating that he wanted to drown in the river. He was extremely paranoid and delusional. Assessment What has happened this shift: Pt stayed in bed most of the shift. He came up to this nurse to "look at the bottom of my foot." Pt's feet are dry. Encouraged him to apply lotion to his feet with clean socks. Pt had a cut on the bottom of his foot from having dry skin. Applied Neosporin and bandage to the area of the broken skin. Pt received a monthly WHITAKER on 10/03. His next injection of Perseris is due on 10/31. S/I, H/I: Denied A/VH: Denies Sleep: On and off in the morning ADL's: Independent Group attendance: No Were Meds taken: Yes, [facility] held as client refused vital signs. Any med S/E: None reported nor observed Mental Status Exam Appearance: Personal clothing and nonskid socks Eye contact: Fair Behavior: Isolating, somewhat restless and anxious Speech: Clear, audible Mood: Appears depressed and paranoid Affect: Blunted Thought process: Paranoid delusions Thought Content: his sore feet Cognition: A/Ox2 Insight: Poor Judgment: Poor Interventions PRN's used: N/A Therapeutic interventions: provided 1:1 assessment, encouraged and prompted pt to engage in conversation, provided therapeutic communication and active listening, medications administration/education/monitoring and monitored q15 min. safety checks. Restraints/seclusion/emergency medication: NA Justification of Continued Inpatient Treatment: Pt needs stabilization, he continues to require a safe and supportive environment with medication adjustments and monitoring to decrease risk of re-hospitalization. Per PA notes, pt lacks insight to his illness and once stabilized will return home if landlord accepts.
--- NOTE | 2019-10-15 14:12 | NUR ---
Pt served with a 5270. Pt refused to sign "I don't agree with it."
[2019-10-15] MEDS: LORazepam 1 MG tablet PO PRN (16:52)
[2019-10-15] MEDS: risperiDONE 2mg tablet PO SCH (19:17)
[2019-10-15] MEDS: traZODone 50mg tablet PO PRN (19:17)
--- NOTE | 2019-10-15 23:40 | NUR ---
Nursing Progress Note Legal hold: 5250 Client on involuntary status for GD/DTS. Report received from ALTON Tim nurse with use of SBAR. Why are they here: Pt admitted from over flow and placed on 5150 for DTS. He was [place] in the [place], refused any help stating that he wanted to drown in the river. He was extremely paranoid and delusional. Assessment What has happened this shift: Pt was up in rec room watching tv with peers. He was cooperative and interacted well. Pt during interview asked if he could get his meds early so as to get agood night sleep. He stated that he has an up comming court date and wants to have someone there. He was med compliant and went to bed. S/I, H/I: Denied A/VH: Denies Sleep: On and off in the morning ADL's: Independent Group attendance: No Were Meds taken: Yes, Norvasc held as client refused vital signs. Any med S/E: None reported nor observed Mental Status Exam Appearance: Personal clothing and nonskid socks Eye contact: Fair Behavior: Isolating, somewhat restless and anxious Speech: Clear, audible Mood: Appears depressed and paranoid Affect: Blunted Thought process: Paranoid delusions Thought Content: his sore feet Cognition: A/Ox2 Insight: Poor Judgment: Poor Interventions PRN's used: Trazodone Therapeutic interventions: provided 1:1 assessment, encouraged and prompted pt to engage in conversation, provided therapeutic communication and active listening, medications administration/education/monitoring and monitored q15 min. safety checks. Restraints/seclusion/emergency medication: NA Justification of Continued Inpatient Treatment: Pt needs stabilization, he continues to require a safe and supportive environment with medication adjustments and monitoring to decrease risk of re-hospitalization. Per PA notes, pt lacks insight to his illness and once stabilized will return home if landlord accepts.
[2019-10-16] MEDS: risperiDONE 2mg tablet PO SCH ×2 (07:51→19:24)
[2019-10-16] MEDS: sulfamethoxazole/trimethoprim DS (800/160mg) tablet PO SCH ×2 (07:51→19:22)
[2019-10-16] MEDS: amLODIPine 5mg tablet PO SCH (07:52)
[2019-10-16] MEDS: magnesium hydroxide 30ml (MOM) UD suspension PO PRN (08:04)
--- NOTE | 2019-10-16 09:47 | NUR ---
Dietary TC: Double portions and proteins new regular diet ordered; LUISA d/w RN recommended double proteins TIDWM as to not overfeed w/ PO hx 75-100% meals. RN is agreeable pending new regular diet order w/ double proteins at this time. Dietary notified. Rec: 1. continue regular diet; double eggs at breakfast/meats BIDLD 2. bowel care as needed; monitor need for additional 3. weekly wts Addendum: 10/16/19 at [address] Amended: Links added.
[2019-10-16] MEDS: calcium carbonate 500mg chew tablet PO PRN ×3 (11:35→17:50)
--- NOTE | 2019-10-16 16:11 | NUR ---
Nursing Progress Note Legal hold: 5250 Client on involuntary status for GD/DTS. Report received from PETAR Bernal nurse with use of SBAR. Why are they here: Pt admitted from over flow and placed on 5150 for DTS. He was [place] the [place], refused any help stating that he wanted to drown in the river. He was extremely paranoid and delusional. Assessment What has happened this shift: Pt is extremely anxious today. He is seen laying on his bed wiggling both legs and rocking. He is up and down all day asking this nurse to increase his antibiotic. Encouraged him to provided a urinalysis but the pt continues to refuse. Educated to the use of the antibiotic as prescribed. On the bottom of his right foot he has a cut caused from having dry feet. Ointment and bandage placed on his foot again encouraged him to soak his feet and apply lotion with clean soaks. Pt does not want to do either. S/I, H/I: Denied A/VH: Denies Sleep: None today ADL's: Independent Group attendance: No Were Meds taken: Yes, Norvasc held as client refused vital signs. Any med S/E: None reported nor observed Mental Status Exam Appearance: Personal clothing and nonskid socks Eye contact: Fair Behavior: Isolating, restless and anxious Speech: Clear, audible Mood: Appears depressed and paranoid Affect: Blunted Thought process: Paranoid delusions Thought Content: his sore feet Cognition: A/Ox2 Insight: Poor Judgment: Poor Interventions PRN's used: N/A Therapeutic interventions: provided 1:1 assessment, encouraged and prompted pt to engage in conversation, provided therapeutic communication and active listening, medications administration/education/monitoring and monitored q15 min. safety checks. Restraints/seclusion/emergency medication: NA Justification of Continued Inpatient Treatment: Pt needs stabilization, he continues to require a safe and supportive environment with medication adjustments and monitoring to decrease risk of re-hospitalization. Per PA notes, pt lacks insight to his illness and once stabilized will return home if landlord accepts.
--- NOTE | 2019-10-16 16:17 | NUR ---
Called Antonette, [facility], to inform her that Dr Otero is requesting a conservatorship evaluation for Sukhjinder. Antonette is going to speak to transportation supervisor, Blanca, and may discuss him in their Tues clinical care meeting. Antonette reported she might see if a [facility] clinician can meet with Sukhjinder on the unit as well. RASHAAD Us
[2019-10-16] MEDS: traZODone 50mg tablet PO PRN (19:56)
--- NOTE | 2019-10-17 00:19 | NUR ---
Nursing Progress Note Legal hold: 5250 Client on involuntary status for GD/DTS. Report received from PETAR Bernal nurse with use of SBAR. Why are they here: Pt admitted from over flow and placed on 5150 for DTS. He was found in the [place] river, refused any help stating that he wanted to drown in the river. He was extremely paranoid and delusional. Assessment What has happened this shift: Pt was in the hallway at change of shift, mostly standing and observing. During 1:1 pt became paranoid and asked this rn to leave his room. Pt continues to be paranoid about medications and refused to take his Risperdal. Pt stated that "the dr told me I no longer had to take it." Pt was also fixated on getting antibiotics tid instead of bid. Giving an explanation did not change the pt's fixation. Pt did take his abx as prescribed and also some trazadone and went to bed with not issue. S/I, H/I: Denied A/VH: Denies Sleep: None today ADL's: Independent Group attendance: No Were Meds taken: no, not risperdal Any med S/E: None reported nor observed Mental Status Exam Appearance: Personal clothing and nonskid socks Eye contact: Fair Behavior: Isolating, restless and anxious Speech: Clear, audible Mood: Appears paranoid Affect: Blunted Thought process: Paranoid delusions Thought Content: his sore feet Cognition: A/Ox2 Insight: Poor Judgment: Poor Interventions PRN's used: N/A Therapeutic interventions: provided 1:1 assessment, encouraged and prompted pt to engage in conversation, provided therapeutic communication and active listening, medications administration/education/monitoring and monitored q15 min. safety checks. Restraints/seclusion/emergency medication: NA Justification of Continued Inpatient Treatment: Pt needs stabilization, he continues to require a safe and supportive environment with medication adjustments and monitoring to decrease risk of re-hospitalization. Per PA notes, pt lacks insight to his illness and once stabilized will return home if landlord accepts.
[2019-10-17] MEDS: amLODIPine 5mg tablet PO SCH (08:00)
[2019-10-17] MEDS: risperiDONE 2mg tablet PO SCH ×2 (08:29→20:19)
[2019-10-17] MEDS: sulfamethoxazole/trimethoprim DS (800/160mg) tablet PO SCH ×2 (08:29→20:19)
[2019-10-17] MEDS: polyethylene glycol 3350 17gm powd pack PO PRN (08:31)
[2019-10-17] MEDS: calcium carbonate 500mg chew tablet PO PRN ×2 (10:45→16:28)
[2019-10-17] MEDS: LORazepam 1 MG tablet PO PRN (12:47)
--- NOTE | 2019-10-17 17:30 | NUR ---
Nursing Progress Note Legal hold: 5250 Client on involuntary status for GD/DTS. Report received from PETAR Rahman nurse with use of SBAR. Why are they here: Pt admitted from over flow and placed on 5150 for DTS. He was [place] in the [place], refused any help stating that he wanted to drown in the river. He was extremely paranoid and delusional. Assessment What has happened this shift: Patient awake shortly after shift change. Patient appears anxious, and is laying in bed with his feet twitching. Patient walks hallways with head phones one. Patient attempted to refuse Zyprexa, but reminded him that he is [place], and patient took his antibiotic and Zyprexa. S/I, H/I: Denied A/VH: Denies Sleep: 8.5 hrs NOC ADL's: Independent Group attendance: No Were Meds taken: Yes, Pt. Refused norvasc, refused vitals. Any med S/E: None reported nor observed Mental Status Exam Appearance: Tall man with short hill hair wearing dodgers shirt and shorts. Eye contact: Fair Behavior: Isolating, restless and anxious Speech: Clear, audible Mood: Depressed. Affect: Blunted Thought process: Paranoid delusions Thought Content: Attempted to refuse medications, personal concerns that he will not discuss. Cognition: A/Ox2 Insight: Poor Judgment: Poor Interventions PRN's used: Tums, Ativan Therapeutic interventions: provided 1:1 assessment, encouraged and prompted pt to engage in conversation, provided therapeutic communication and active listening, medications administration/education/monitoring and monitored q15 min. safety checks. Restraints/seclusion/emergency medication: NA Justification of Continued Inpatient Treatment: Pt needs stabilization, he continues to require a safe and supportive environment with medication adjustments and monitoring to decrease risk of re-hospitalization. Per PA notes, pt lacks insight to his illness and once stabilized will return home if landlord accepts.
[2019-10-17] MEDS: traZODone 50mg tablet PO PRN (20:20)
--- NOTE | 2019-10-17 22:12 | NUR ---
Nursing Progress Note Legal hold: 5250 Client on involuntary status for GD/DTS. Report received from PETAR Tim nurse with use of SBAR. Why are they here: Pt admitted from over flow and placed on 5150 for DTS. He was [place] in the [place], refused any help stating that he wanted to drown in the river. He was extremely paranoid and delusional. Assessment What has happened this shift: Patient asleep at change of shift. Awoke pt for 1:1 and meds. pt was med compliant after some prompting. Stated I dont want to talk right now I'm fine. Pt refused vitals and snack this shift. S/I, H/I: Denied A/VH: Denies Sleep: 8.5 hrs NOC ADL's: Independent Group attendance: No Were Meds taken: Yes, Pt. refused vitals. Any med S/E: None reported nor observed Mental Status Exam Appearance: Tall man with short hill hair wearing dodgers shirt and shorts. Eye contact: Fair Behavior: Isolating, restless and anxious Speech: Clear, audible Mood: Depressed. Affect: Blunted Thought process: Paranoid delusions Thought Content: Attempted to refuse medications, personal concerns that he will not discuss. Cognition: A/Ox2 Insight: Poor Judgment: Poor Interventions PRN's used: Trazodone Therapeutic interventions: provided 1:1 assessment, encouraged and prompted pt to engage in conversation, provided therapeutic communication and active listening, medications administration/education/monitoring and monitored q15 min. safety checks. Restraints/seclusion/emergency medication: NA Justification of Continued Inpatient Treatment: Pt needs stabilization, he continues to require a safe and supportive environment with medication adjustments and monitoring to decrease risk of re-hospitalization. Per PA notes, pt lacks insight to his illness and once stabilized will return home if landlord accepts.
[2019-10-18] MEDS: amLODIPine 5mg tablet PO SCH (08:00)
[2019-10-18] MEDS: risperiDONE 2mg tablet PO SCH ×2 (08:39→20:07)
[2019-10-18] MEDS: polyethylene glycol 3350 17gm powd pack PO PRN (13:25)
[2019-10-18] MEDS: LORazepam 1 MG tablet PO PRN ×2 (13:41→20:07)
[2019-10-18 15:31] LABS: CLARITY,URINE CLEAR (Clear); COLOR,URINE STRAW (Yellow); GLUCOSE, URINE NEGATIVE (Neg); KETONES,URINE NEGATIVE (Neg); LEUKOCYTE ESTERASE ,URINE NEGATIVE (Neg); NITRITES, URINE NEGATIVE (Neg); OCCULT BLOOD,URINE NEGATIVE (Neg); PROTEIN,URINE NEGATIVE (Neg); UROBILINOGEN,URINE 0.2 E.U/dL (0.2-1.0)
[2019-10-18 15:32] LABS: UA COLLECTION TYPE CLN CATCH MIDSTREAM
--- NOTE | 2019-10-18 17:38 | NUR ---
Nursing Progress Note Legal hold: 5270 Client on involuntary status for GD/DTS. Report received from PETAR Rahman nurse with use of SBAR. Why are they here: Pt admitted from over flow and placed on 5150 for DTS. He was [place] the [place], refused any help stating that he wanted to drown in the river. He was extremely paranoid and delusional. Assessment What has happened this shift: Patient sleeping at shift change. Awakened for breakfast and medications. Pt. Does take his Risperdal with support from RN, but reports that he will not take medications once he is home. He states that he does not need medications at home. Patient later in the shift came up to RN and asked if he could give a urine sample, and get back on antibiotics, as he still has burning with urination. Urine sample sent down to lab. S/I, H/I: Denied A/VH: Denies Sleep: 10 hrs NOC ADL's: Independent Group attendance: No Were Meds taken: Yes, Pt. Refused norvasc, refused vitals. Any med S/E: None reported nor observed Mental Status Exam Appearance: Patient shaved his head and facial hair. Wearing same football jersey since admission with shorts. Refuses to shower. Eye contact: Fair Behavior: Isolating, restless and anxious Speech: Clear, audible Mood: Depressed. Affect: Blunted Thought process: Paranoid delusions Thought Content: Attempted to refuse medications. Burning with urination. Cognition: A/Ox2 Insight: Poor Judgment: Poor Interventions PRN's used: Ativan Therapeutic interventions: provided 1:1 assessment, encouraged and prompted pt to engage in conversation, provided therapeutic communication and active listening, medications administration/education/monitoring and monitored q15 min. safety checks. Restraints/seclusion/emergency medication: NA Justification of Continued Inpatient Treatment: Pt needs stabilization, he continues to require a safe and supportive environment with medication adjustments and monitoring to decrease risk of re-hospitalization. Per PA notes, pt lacks insight to his illness and once stabilized will return home if landlord accepts.
[2019-10-18] MEDS: traZODone 50mg tablet PO PRN ×2 (20:07→20:36)
--- NOTE | 2019-10-18 21:36 | NUR ---
Nursing Progress Note: Legal hold: 5270 for danger to self Report received from Jimenez DAVEY with use of SBAR Why are they here: The patient is a 44 year old male who was removed from the [place] by the police and taken to the ER for a mental health evaluation. The patient a long history of paranoid schizophrenia and is a client of [facility]. He presented with agitation, paranoia and actively responding to internal stimuli. Assessment What has happened this shift: The patient was up on the unit and he was social with a group of male peers playing a board game in the patient dining room. He was fairly cooperative with the nursing assessment but very guarded when asked about hearing voices. He stated that if he were to answer that question then that would look bad for him. He did state he had an implanted chip in his forearm. The patient stated that he felt the "ativan is most effective for anxiety and trazodone is most helpful for sleep" He stated he did not like the Risperdal and stated he did not feel he needed it and stated that it was not true that "Schizophrenia is a wrong diagnosis for me...I'm not bipolar. I'm not any of them" He described his mood as "good mellow across the board. I'm happy. I have some upsetness over just being here" He denies anxiety. He denies thoughts to harm himself or others. He appeared clean and adequately groomed. Were meds taken: The patient was med compliant. Any med S/E The patient appeared to be constantly bouncing his legs up and down during the interview and when asked about it he stopped. Mental Status Exam Insight: poor Judgment: Poor Interventions PRN's used: Ativan and trazodone Justification of Continued Inpatient Treatment: The patient has very poor insight and is continuing to have voices and delusional beliefs that he has a chip implanted in his harm. He is requiring prn medications.
[2019-10-19] MEDS: amLODIPine 5mg tablet PO SCH (08:00)
[2019-10-19] MEDS: risperiDONE 2mg tablet PO SCH ×2 (08:11→20:00)
--- NOTE | 2019-10-19 10:26 | NUR ---
Reassessment: Patient's PO intake slightly fluctuates however overall averaging 75-100% PO intake while receiving double protein TID meeting nutrient needs. LBM 8/ documented as constipated. Pt receiving PRN bowel care. D/w dietary to send prunes and prune juice with lunch today to assist bowel regularity. Will continue to follow and monitor need for additional nutrition intervention. Rec: 1. continue regular diet; double eggs at breakfast/meats BIDLD 2. bowel care as needed; monitor need for additional 3. scaled weights per rx Addendum: 10/19/19 at [address] Amended: Links added.
--- NOTE | 2019-10-19 14:53 | NUR ---
Nursing Progress Note Legal hold: 5270 Client on involuntary status for GD/DTS. Report received from PETAR Rahman nurse with use of SBAR. Why are they here: Pt admitted from over flow and placed on 5150 for DTS. [place], refused any help stating that he wanted to drown in the river. He was extremely paranoid and delusional. Assessment What has happened this shift: The patient slept in, was up to eat breakfast then immediately back to bed. Denies hallucinations of any kind, refused VS's, and reports not needing Norvasc which he refused. C/O constipation and can't remember last date of BM. Asked for Miralax which he took and then later in the day asked to be prescribed Colace. New order was received and will start tonight. States he wants to leave and is anxious when talking to SW about discharging and requested some Ativan which helped with his anxiety. Isolates to room most of day. S/I, H/I: Denies A/VH: Denies Sleep: napped ADL's: Independent Group attendance: No Were Meds taken: Yes Any med S/E: None reported nor observed Mental Status Exam Appearance: disheveled Eye contact: Fair Behavior: Isolates and anxious Speech: Clear, audible Mood: labile Affect: Blunted Thought process: delusional Thought Content: discharging and constipation Cognition: Alert Insight: Poor Judgment: Poor Interventions PRN's used: Ativan Therapeutic interventions: provided 1:1 assessment, encouraged and prompted pt to engage in conversation, provided therapeutic communication and active listening, medications administration/education/monitoring and monitored q15 min. safety checks. Restraints/seclusion/emergency medication: NA Justification of Continued Inpatient Treatment: Pt needs stabilization, he continues to require a safe and supportive environment with medication adjustments and monitoring to decrease risk of re-hospitalization. Per PA notes, pt lacks insight to his illness and once stabilized will return home if landlord accepts.
[2019-10-19] MEDS: LORazepam 1 MG tablet PO PRN (15:20)
--- NOTE | 2019-10-19 16:18 | NUR ---
DCP Presenting Issues: Pt is requesting dcp support. Pt continues to exhibit paranoid ideations-being monitored via a chip under his skin, "I need a CAT scan to see if the chip's there". Pt reports, "I've been doing well, I would like to be d/c now". Interventions: SS met w/pt and engaged him in dcp activities. Pt reports that he will go to a motel and continue work w/[facility] support providers to get into a new apartment. SS inquired about outpatient MH service provider, pt states, "I'll see them as needed". SS utilized GA & DBT strategies to address pt's resistance to an aftercare plan. Pt expressed distrust of outpatient service providers and claims that he does not need to follow-up with anyone. Pt also states, "I'lll take meds while I'm in here but when I discharge, I'll only take them as needed." Pt able asked SS to contact his [facility] support team to confirm support from them upon d/c. SS had t/c with pt's [facility] provider-Liliana, per t/c Liliana reports that pt appears to be close to baseline today but she would like pt to remain inpatient thru the weekend as pt's support person from [facility] will be available to contact pt and work out a dcp. SS consulted w/attending PA re pt's d/c disposition, per consultation, pt is not ready for d/c at this time. Plan: SS will continue to engage with pt to facilitate dcp. Winter Edwards LCSW Addendum: 10/19/19 at 1700 by Winter WHITE Amended: Links added.
[2019-10-19] MEDS: OLANZapine 2.5MG tablet PO PRN (18:48)
[2019-10-19] MEDS: docusate sod 100mg capsule PO SCH (20:00)
[2019-10-19] MEDS: diphenhydrAMINE 25mg capsule PO PRN (21:29)
[2019-10-19] MEDS: traZODone 50mg tablet PO PRN (21:30)
--- NOTE | 2019-10-19 23:53 | NUR ---
Nursing Progress Note Legal hold: 5270 Client on involuntary status for GD/DTS. Report received from PETAR Bernal with use of SBAR. Why are they here: Pt admitted from over flow and placed on 5150 for DTS. He was [place] the [place], refused any help stating that he wanted to drown in the river. He was extremely paranoid and delusional. Assessment What has happened this shift: Patient mostly isolates in room following shift change, minimal time in community room. Patient is medication compliant. Patient requested Ativan early in shift for anxiety and agitation. Patient advised he is outside the window for Ativan until later. Patient accepts PO Zyprexa instead. Patient calmed following Zyprexa. Patient refused vital signs. Anxiety present at bedtime, Benadryl and Trazadone given, patient denies need for Ativan. Patients affect is flat. He dneies S/I or any hallucinations. Patient refuses to interview further. S/I, H/I: Denies. A/VH: Denies. Sleep: napped ADL's: Independent. Group attendance: Not on days. Were Meds taken: Yes, medication compliant. Any med S/E: None reported nor observed. Mental Status Exam Appearance: Disheveled, wearing shirt and shorts. Eye contact: Fair. Behavior: Isolates and anxiety with some agitation. Speech: Clear, audible. Mood: Irritable, lable. Affect: Blunted. Thought process: Delusional. Thought Content: Feeling upset. Cognition: Alert. Insight: Poor. Judgment: Poor. Interventions PRN's used: Zyprexa, Benadryl, Trazadone. Therapeutic interventions: provided 1:1 assessment, encouraged and prompted pt to engage in conversation, provided therapeutic communication and active listening, medications administration/education/monitoring and monitored q15 min. safety checks. Restraints/seclusion/emergency medication: NA Justification of Continued Inpatient Treatment: Pt needs stabilization, he continues to require a safe and supportive environment with medication adjustments and monitoring to decrease risk of re-hospitalization. Per PA notes, pt lacks insight to his illness and once stabilized will return home if landlord accepts.
[2019-10-20] MEDS: amLODIPine 5mg tablet PO SCH (08:00)
[2019-10-20] MEDS: risperiDONE 2mg tablet PO SCH ×2 (08:18→20:14)
[2019-10-20] MEDS: docusate sod 100mg capsule PO SCH ×2 (08:18→20:14)
--- NOTE | 2019-10-20 15:23 | NUR ---
NURSING PROGRESS NOTE Legal hold: 5270 Client on involuntary status for GD/DTS. Report received from PETAR Hassan nurse with use of SBAR. Why are they here: Pt admitted from over flow and placed on 5150 for DTS. He was [place] the [place], refused any help stating that he wanted to drown in the river. He was extremely paranoid and delusional. Assessment What has happened this shift: Sleeping in morning and isolating to room. This nurse told patient, "we'll talk later when you wake up." he stated, "About what?" in a paranoid manner. Stated, "I don't need to talk with anyone about anything. Nothing is wrong." Denies suicidal thoughts and hallucinations. Took meds and did come out for snacks in afternoon. Reports he has had a small BM this morning as was previously constipated, Colace has been started BID. S/I, H/I: Denies A/VH: Denies Sleep: napped ADL's: Independent Group attendance: No Were Meds taken: Yes Any med S/E: None reported nor observed Mental Status Exam Appearance: disheveled Eye contact: Fair Behavior: Isolates Speech: Clear, audible Mood: "I'm fine" Affect: Blunted Thought process: delusional Thought Content: discharging Cognition: Alert Insight: Poor Judgment: Poor Interventions PRN's used: None Therapeutic interventions: provided 1:1 assessment, encouraged and prompted pt to engage in conversation, provided therapeutic communication and active listening, medications administration/education/monitoring and monitored q15 min. safety checks. Restraints/seclusion/emergency medication: NA Justification of Continued Inpatient Treatment: Pt needs stabilization, he continues to require a safe and supportive environment with medication adjustments and monitoring to decrease risk of re-hospitalization. Per PA notes, pt lacks insight to his illness and once stabilized will return home if landlord accepts.
[2019-10-20] MEDS: LORazepam 1 MG tablet PO PRN (16:05)
[2019-10-20] MEDS: OLANZapine 2.5MG tablet PO PRN (18:23)
[2019-10-20 19:00] VITALS: BP 128/72
[2019-10-20] MEDS: traZODone 50mg tablet PO PRN (20:14)
--- NOTE | 2019-10-21 00:34 | NUR ---
Report received from , RN nurse with use of SBAR. Why are they here: Pt admitted from over flow and placed on 5150 for DTS. He was [place], refused any help stating that he wanted to drown in the river. He was extremely paranoid and delusional. Assessment What has happened this shift: This patient primarily isolated in room. On occasion he was in the hallway, scribbling notes while looking at patient rights posters. Patient is paranoid when it comes to discussing any aspects of his medical condition or care. Patient refused vital signs once again but gradually consented after gentle persuasion. Patient answered limited medical questions from this securities underwriter, becoming a little labile, raising his voice and saying, the answers are the same as yesterday. Patient minimizes his medical condition. S/I, H/I: Denies. A/VH: Denies. Sleep: Good, will tally in am. ADL's: Independent. Group attendance: No Were Meds taken: Yes, medication compliant. Any med S/E: None reported nor observed. Mental Status Exam Appearance: Disheveled. Eye contact: Fair. Behavior: Isolates Speech: Clear, audible, tone varies. Mood: Irritable at times. Affect: Blunted. Thought process: Suspicious, paranoid. Thought Content: Patient not sharing thoughts. Cognition: Alert. Insight: Poor. Judgment: Poor. Interventions PRN's used: None Therapeutic interventions: provided 1:1 assessment, encouraged and prompted pt to engage in conversation, provided therapeutic communication and active listening, medications administration/education/monitoring and monitored q15 min. safety checks. Restraints/seclusion/emergency medication: NA Justification of Continued Inpatient Treatment: Pt needs stabilization, he continues to require a safe and supportive environment with medication adjustments and monitoring to decrease risk of re-hospitalization. Per YOSVANY notes, pt lacks insight to his illness and once stabilized will return home if landlord accepts. Addendum: 10/21/19 at 0252 by Mo Fairchild RN disregard this note. see 0200 hour nurse progress note.
--- NOTE | 2019-10-21 02:00 | NUR ---
NURSING PROGRESS NOTE Legal hold: 5270 Client on involuntary status for GD/DTS. Report received from PETAR Bernal nurse with use of SBAR. Why are they here: Pt admitted from over flow and placed on 5150 for DTS. [place], refused any help stating that he wanted to drown in the river. He was extremely paranoid and delusional. Assessment What has happened this shift: This patient primarily isolated in room. On occasion he was in the hallway, scribbling notes while looking at patient rights posters. Patient is paranoid when it comes to discussing any aspects of his medical condition or care. Patient refused vital signs once again but gradually consented after gentle persuasion. Patient answered limited medical questions from this personal lines underwriter, becoming a little labile, raising his voice and saying, the answers are the same as yesterday. Patient minimizes his medical condition. S/I, H/I: Denies. A/VH: Denies. Sleep: Good, will tally in am. ADL's: Independent. Group attendance: No Were Meds taken: Yes, medication compliant. Any med S/E: None reported nor observed. Mental Status Exam Appearance: Disheveled. Eye contact: Fair. Behavior: Isolates Speech: Clear, audible, tone varies. Mood: Irritable at times. Affect: Blunted. Thought process: Suspicious, paranoid. Thought Content: Patient not sharing thoughts. Cognition: Alert. Insight: Poor. Judgment: Poor. Interventions PRN's used: None Therapeutic interventions: provided 1:1 assessment, encouraged and prompted pt to engage in conversation, provided therapeutic communication and active listening, medications administration/education/monitoring and monitored q15 min. safety checks. Restraints/seclusion/emergency medication: NA Justification of Continued Inpatient Treatment: Pt needs stabilization, he continues to require a safe and supportive environment with medication adjustments and monitoring to decrease risk of re-hospitalization. Per PA notes, pt lacks insight to his illness and once stabilized will return home if landlord accepts.
[2019-10-21] MEDS: amLODIPine 5mg tablet PO SCH (08:00)
[2019-10-21] MEDS: risperiDONE 2mg tablet PO SCH ×2 (08:12→20:21)
[2019-10-21] MEDS: docusate sod 100mg capsule PO SCH ×2 (08:12→20:21)
[2019-10-21] MEDS: LORazepam 1 MG tablet PO PRN (14:07)
--- NOTE | 2019-10-21 15:50 | NUR ---
NURSING PROGRESS NOTE Legal hold: 5270 Client on involuntary status for GD/DTS. Report received from PETAR Hassan nurse with use of SBAR. Why are they here: Pt admitted from over flow and placed on 5150 for DTS. He was [place] the [place], refused any help stating that he wanted to drown in the river. He was extremely paranoid and delusional. Assessment What has happened this shift: Isolative to room most of day. Out in afternoon and for meals. Had increased anxiety in afternoon and asked for headphones and an Ativan which had a good effect. Continues to deny any mental health issues, but states he has a "chip in his arm." No outbursts or labile mood swings today. S/I, H/I: Denies A/VH: Denies Sleep: napped ADL's: Independent Group attendance: No Were Meds taken: Yes Any med S/E: None reported nor observed Mental Status Exam Appearance: disheveled Eye contact: Fair Behavior: Isolates Speech: Clear, audible Mood: "Nothing is wrong with me" Affect: Blunted Thought process: delusional Thought Content: discharging Cognition: Alert Insight: Poor Judgment: Poor Interventions PRN's used: Ativan Therapeutic interventions: provided 1:1 assessment, encouraged and prompted pt to engage in conversation, provided therapeutic communication and active listening, medications administration/education/monitoring and monitored q15 min. safety checks. Restraints/seclusion/emergency medication: NA Justification of Continued Inpatient Treatment: Pt needs stabilization, he continues to require a safe and supportive environment with medication adjustments and monitoring to decrease risk of re-hospitalization. Per PA notes, pt lacks insight to his illness and once stabilized will return home if landlord accepts.
[2019-10-21] MEDS: traZODone 50mg tablet PO PRN (20:21)
--- NOTE | 2019-10-22 01:08 | NUR ---
Nursing Progress Note: Legal hold: 5270 Client on involuntary status for GD/DTS. Report received from PETAR Bernal nurse with use of SBAR. Why are they here: Pt admitted from over flow and placed on 5150 for DTS. [place] was [place], refused any help stating that he wanted to drown in the river. He was extremely paranoid and delusional. Assessment What has happened this shift: Pt is observed walking the unit at shift change but does not engage with peers or staff. He does approach staff seeking out his HS medications, but does not want to answer any questions. He refuses vital signs and also refuses physical assessment. He denies SI/HI/AH/VH at this time and becomes frustrated when I ask him this. I really wish you would stop asking me that! I dont want to talk about things like that! S/I, H/I: Does not endorse A/VH: +A/VH, Will not endorse but is observed to respond to stimuli Sleep: See Sleep Assessment. ADL's: Independent Group attendance: N/A Were meds taken: No meds scheduled HS Any med S/E: None reported nor observed Mental Status Exam Appearance: Appropriate, personal clothing and nonskid socks Eye contact: Fair Behavior: Isolating to his room Speech: Clear Mood: Irritable Affect: Flat Thought process: Paranoid, thought blocking Thought Content: not trusting of staff Cognition: A/Ox2 Insight: Poor Judgment: Poor Interventions PRN's used: trazodone Therapeutic interventions: monitoring of behaviors with intervention; limit setting and redirection as needed, maintained Q 15 minute safety checks, monitor medication therapeutic and side effects. Restraints/seclusion/emergency medication: NA Justification of Continued Inpatient Treatment: Pt needs stabilization, he continues to require a safe and supportive environment with medication adjustments and monitoring to decrease risk of re-hospitalization. Per PA notes, pt lacks insight to his illness and once stabilized will return home if landlord accepts.
[2019-10-22] MEDS: risperiDONE 2mg tablet PO SCH ×2 (07:59→20:15)
[2019-10-22] MEDS: docusate sod 100mg capsule PO SCH ×2 (07:59→20:15)
[2019-10-22] MEDS: amLODIPine 5mg tablet PO SCH (08:00)
[2019-10-22] MEDS: LORazepam 1 MG tablet PO PRN (14:59)
[2019-10-22] MEDS: diphenhydrAMINE 25mg capsule PO PRN (15:37)
--- NOTE | 2019-10-22 16:30 | NUR ---
Nursing Progress Note: Legal hold: 5250 Client on involuntary status for GD/DTS. Report received from RN with use of SBAR. Why are they here: Pt admitted from over flow and placed on 5150 for DTS. He was found in the [place], refused any help stating that he wanted to drown in the river. He was extremely paranoid and delusional. Assessment What has happened this shift: Received Pt in bed sleeping w/o distress at change of shift. Pt awoke and refused vitals again. Pt took AM meds except Amlodipine. Pt cooperative, yet anxious about his discharge date and time. When asked where he would be going, he stated its personal and I dont want to share it Pt tolerated assessment questions well, although guarded. Pt ate well today. Became anxious in mid afternoon around discharge and received Ativan at his request with little effect; he also received Benadryl and started walking with headphones. S/I, H/I: Denies A/VH: Talks/converses with self Sleep: Napped ADL's: Independent Group attendance: No Were Meds taken: Yes Any med S/E: N/A Mental Status Exam Appearance: Casual/ Dodgers shirt and shorts Eye contact: Poor Behavior: Pleasant/polite Speech: Clear, tangential Mood: Anxious Affect: Blunted Thought process: Disorganized Thought Content: Anxious about discharge Cognition: A/Ox3 Insight: Impaired Judgment: Impaired Interventions PRN's used: Ativan, benadryl Therapeutic interventions: Encouraged and educated pt to the purpose of the AM, 1:1 assessment; provided therapeutic communication with active listening; monitoring of behaviors; provided medication administration/education/monitoring; maintained Q 15 minute safety checks. Restraints/seclusion/emergency medication: N/A Justification of Continued Inpatient Treatment: Pt continues to need mental health stabilization, he requires a safe and supportive environment with medication adjustments and monitoring to decrease risk of re-hospitalization.
[2019-10-22] MEDS: traZODone 50mg tablet PO PRN (20:15)
--- NOTE | 2019-10-22 22:42 | NUR ---
Nursing Progress Note: Legal hold: 5250 Client on involuntary status for GD/DTS. Report received from Gabe DAVEY with use of SBAR. Why are they here: Pt admitted from over flow and placed on 5150 for DTS. He was found in the [place], refused any help stating that he wanted to drown in the river. He was extremely paranoid and delusional. Assessment What has happened this shift: Patient was in bed napping at shift change. He got up for a little while in the [place] talking to him self. Asked pt about his day and he stated I dont want to talk now and walked off. Pt was med compliant and asked for a prn for sleep. Pt was given Trazodone that was effective. S/I, H/I: Denies A/VH: Talks/converses with self Sleep: See sleep hrs ADL's: Independent Group attendance: No Were Meds taken: Yes Any med S/E: N/A Mental Status Exam Appearance: Casual/ Dodgers shirt and shorts Eye contact: Poor Behavior: Pleasant/polite Speech: Clear, tangential Mood: Anxious Affect: Blunted Thought process: Disorganized Thought Content: Anxious about discharge Cognition: A/Ox3 Insight: Impaired Judgment: Impaired Interventions PRN's used: Trazodone Therapeutic interventions: Encouraged and educated pt to the purpose of the AM, 1:1 assessment; provided therapeutic communication with active listening; monitoring of behaviors; provided medication administration/education/monitoring; maintained Q 15 minute safety checks. Restraints/seclusion/emergency medication: N/A Justification of Continued Inpatient Treatment: Pt continues to need mental health stabilization, he requires a safe and supportive environment with medication adjustments and monitoring to decrease risk of re-hospitalization.
[2019-10-23] MEDS: docusate sod 100mg capsule PO SCH ×2 (07:45→20:28)
[2019-10-23] MEDS: risperiDONE 2mg tablet PO SCH ×2 (07:45→20:28)
[2019-10-23] MEDS: amLODIPine 5mg tablet PO SCH (07:57)
--- NOTE | 2019-10-23 08:32 | NUR ---
CM Presenting Issues: SS received VM & t/c from pt's brother expressing concerns re pt's possibly d/c-in soon. Per t/c pt's been calling his dtr-Rupali telling arguing with her & telling her that he's d/c-ing soon and he would get in his car and drive to her home. Pt was emotionally charged during phone call w/dtr and upset the dtr. Interventions: Pt has not signed rubi to allow SS to exchange info w/family members. SS gathered info, and informed pt's brother that SS cannot confirm/deny pt's status @ [facility]. Informed pt's brother that d/c decisions are made by the attending physician and is determined by a pt's capacity to be safe following d/c. Plan: SS to consult w/attending physician re appropriate dcp. Winter Edwards LCSW Addendum: 10/23/19 at 0839 by Winter Edwards SS Amended: Links added.
[2019-10-23 13:42] LABS: CLARITY,URINE CLEAR (Clear); COLOR,URINE STRAW (Yellow); GLUCOSE, URINE NEGATIVE (Neg); KETONES,URINE NEGATIVE (Neg); LEUKOCYTE ESTERASE ,URINE NEGATIVE (Neg); NITRITES, URINE NEGATIVE (Neg); OCCULT BLOOD,URINE NEGATIVE (Neg); PH,URINE 5.5 (4.8-8.0); PROTEIN,URINE NEGATIVE (Neg); UROBILINOGEN,URINE 0.2 E.U/dL (0.2-1.0)
[2019-10-23 13:48] LABS: UA COLLECTION TYPE CLN CATCH MIDSTREAM
--- NOTE | 2019-10-23 15:32 | NUR ---
Nursing Progress Note: Diego Legal hold: 5250 Client on involuntary status for GD/DTS. Report received from Kiki Boone RN with use of SBAR. Why are they here: Pt admitted from over flow and placed on 5150 for DTS. He was [place], refused any help stating that he wanted to drown in the river. He was extremely paranoid and delusional. Assessment What has happened this shift: Client was visible on the unit at shift change. Client met with story writer and stated that he wants to meet with, "My Doctor and my Manager Utilization Management, at the same time today". Client was assured that his request was brought forward for consideration. Client refused VS this am so therefore onre medication was held but other medications were taken. Client approached story writer at 1340 hours and stated that he would like to be considered for a long acting injectable if, "it speeds up my discharge". Client wanted the information forwarded to his Doctor. Ua was sent to Lab for analysis for possible UTI. According to client, "it rodriguez when I pee". Client has had a shower, shave and has had appropriate behaviors all shift. S/I, H/I: Denies A/VH: Talks/converses with self Sleep: See sleep hrs ADL's: Independent Group attendance: No Were Meds taken: Yes Any med S/E: N/A Mental Status Exam Appearance: Casual/ Dodgers shirt and shorts Eye contact: Poor Behavior: Pleasant/polite Speech: Clear, tangential Mood: Anxious Affect: Blunted Thought process: Disorganized Thought Content: Anxious about discharge Cognition: A/Ox3 Insight: Impaired Judgment: Impaired Interventions PRN's used: Trazodone Therapeutic interventions: Encouraged and educated pt to the purpose of the AM, 1:1 assessment; provided therapeutic communication with active listening; monitoring of behaviors; provided medication administration/education/monitoring; maintained Q 15 minute safety checks. Restraints/seclusion/emergency medication: N/A Justification of Continued Inpatient Treatment: Pt continues to need mental health stabilization, he requires a safe and supportive environment with medication adjustments and monitoring to decrease risk of re-hospitalization.
[2019-10-23] MEDS: LORazepam 1 MG tablet PO PRN (15:34)
--- NOTE | 2019-10-23 16:01 | NUR ---
Nurse note: Pt complains of burning upon urination and inability to void. UA sent and negative. Post void residual bladder scan is negative.
[2019-10-23] MEDS: OLANZapine 2.5MG tablet PO PRN (18:39)
[2019-10-23] MEDS: traZODone 50mg tablet PO PRN (20:28)
--- NOTE | 2019-10-23 21:54 | NUR ---
Nursing Progress Note: Diego Legal hold: 5250 Client on involuntary status for GD/DTS. Report received from Gabe DAVEY with use of SBAR. Why are they here: Pt admitted from over flow and placed on 5150 for DTS. He was found in the [place], refused any help stating that he wanted to drown in the river. He was extremely paranoid and delusional. Assessment What has happened this shift: Patient was in his room at shift change. C/o anxiety/agitation and a head ache. Prn Zyprexa and Tylenol given and effective. Pt was med compliant with a little prompting he stated I 'm tired of taking pills. and want to discharge. Pt went to sleep after med pass. S/I, H/I: Denies A/VH: Talks/converses with self Sleep: See sleep hrs ADL's: Independent Group attendance: No Were Meds taken: Yes Any med S/E: N/A Mental Status Exam Appearance: Casual/ Dodgers shirt and shorts Eye contact: Poor Behavior: Pleasant/polite Speech: Clear, tangential Mood: Anxious Affect: Blunted Thought process: Disorganized Thought Content: Anxious about discharge Cognition: A/Ox3 Insight: Impaired Judgment: Impaired Interventions PRN's used: Trazodone, Tylenol. Therapeutic interventions: Encouraged and educated pt to the purpose of the AM, 1:1 assessment; provided therapeutic communication with active listening; monitoring of behaviors; provided medication administration/education/monitoring; maintained Q 15 minute safety checks. Restraints/seclusion/emergency medication: N/A Justification of Continued Inpatient Treatment: Pt continues to need mental health stabilization, he requires a safe and supportive environment with medication adjustments and monitoring to decrease risk of re-hospitalization.
[2019-10-24] MEDS: amLODIPine 5mg tablet PO SCH (08:00)
[2019-10-24] MEDS: docusate sod 100mg capsule PO SCH ×2 (08:16→20:00)
[2019-10-24] MEDS: risperiDONE 2mg tablet PO SCH ×2 (08:16→20:01)
--- NOTE | 2019-10-24 08:54 | NUR ---
Late Note for contact completed on 10/22 DCP Presenting Issues: Pt expressed desire to d/c, paranoid delusions have improved although they continue to impair decision making. Interventions: SS had t/c w/pt's [facility] support service providers (ginette & Lawson) [phone] and engaged them in dcp activities. Per t/c, pt's [facility] support service providers will pick pt up when he is d/c and take him to major hospital to establish services and then put pt in a motel. They willl continue to work with pt to assist him in accessing stable housing. SS contacted [facility] [employer]aretaker-[employer]ammi, left [facility] re above dcp and linkage to [facility] for same day injection. Plan: SS will consult w/attending physician re dcp and determine appropriate d/c date pending [facility] response. Winter Edwards LCSW Addendum: 10/24/19 at 0919 by Winter WHITE Amended: Links added.
[2019-10-24] MEDS: LORazepam 1 MG tablet PO PRN ×3 (11:57→18:21)
[2019-10-24] MEDS: mineral oil/petrolatum, white cream 113gm jar TP SCH ×2 (12:07→20:01)
--- NOTE | 2019-10-24 15:54 | NUR ---
NURSING PROGRESS NOTE Legal hold: 5270 Client on involuntary status for GD/DTS. Report received from PETAR Rahman nurse with use of SBAR. Why are they here: Pt admitted from over flow and placed on 5150 for DTS. He was found in the [place] river, refused any help stating that he wanted to drown in the river. He was extremely paranoid and delusional. Assessment What has happened this shift: Cooperative and anxious today. Isolates to room mostly but does come out in hallway at times to get needs met and for meals. Guarded and paranoid at times, questions things, does not like to be touched. Became anxious, ststing he was anxious and visibly shaking after talking with MD/SW about discharging. Thought he was going to discharge today but found out "it will be 6 more days." Asked for Ativan, and had to repeat dose 45 minutes later as prescribed as first dose did not have desired effect. C/O dry cracked feet. New order received for Eucerin Cream which was obtained and put on feet after shower. In afternoon patient was able to settle down and rest. S/I, H/I: Denies A/VH: Denies Sleep: napped ADL's: Independent Group attendance: No Were Meds taken: Yes Any med S/E: None reported nor observed Mental Status Exam Appearance: disheveled Eye contact: Fair Behavior: Isolates Speech: Clear, audible Mood: Anxious Affect: congruent with mood Thought process: linear Thought Content: discharging Cognition: Alert Insight: Poor Judgment: Poor Interventions PRN's used: Ativan Therapeutic interventions: provided 1:1 assessment, encouraged and prompted pt to engage in conversation, provided therapeutic communication and active listening, medications administration/education/monitoring and monitored q15 min. safety checks. Restraints/seclusion/emergency medication: NA Justification of Continued Inpatient Treatment: Pt needs stabilization, he continues to require a safe and supportive environment with medication adjustments and monitoring to decrease risk of re-hospitalization. Per PA notes, pt lacks insight to his illness and once stabilized will return home if landlord accepts.
--- NOTE | 2019-10-24 17:25 | NUR ---
DCP Presenting Issues: Pt's paranoiia has improved, his thought process is also clearer, he's able to formulate a reasonable dcp for himself. He is anxious and wants to d/c. Interventions: SS consulted w/attending physician re timeframe for d/c. Per consultation, pt will d/c Sunday 10/29 AM after receiving his Risperidone injection, he will be picked up by his [facility] support service providers and taken to [facility] to establish services. From there, they will take pt to a motel and will continue to meet w/pt and provide assistance for pt to get into a new apartment. SS accompanied attending physician to meet w/pt and reviewed dcp w/him, pt agreed to d/c on 10/29. SS had t/c w/pt's [facility] CM and informed him about dcp. Plan: SS will continue to monitor pt's progress and d/c needs. Winter Edwards LCSW Addendum: 10/24/19 at 1731 by Winter WHITE Amended: Links added.
[2019-10-24] MEDS: traZODone 50mg tablet PO PRN (20:01)
--- NOTE | 2019-10-24 20:41 | NUR ---
Nursing Progress Note: Legal hold:5270 for DTS Report received from Gabe DAVEY with use of SBAR Why are they here: Pt admitted from over flow and placed on 5150 for DTS. He was found in the [place] river, refused any help stating that he wanted to drown in the river. He was extremely paranoid and delusional. Assessment What has happened this shift: The patient was isolative to his room and resting on his bed. He was very cooperative with the evening assessment. He appeared anxious and had received prn ativan prior to shift change. He stated that he felt very anxious and disappointed that he had to stay 6 more days at [facility]. He stated "I'll just have to tough it out" He asked to soak his feet which he was assisted with. He did not appear to be responding to internal stimuli during the assessment and he was not observed talking to himself. S/I, H/I: Denied A/VH: none reported or observed Were meds taken: The patient is medication compliant Any med S/E Lateral jaw movement noted and was less noticeable after ativan had a chance to take affect Mental Status Exam Appearance: Appeared clean and dressed in green hospital scrubs Eye contact: WNL Behavior: Pleasant and cooperative Speech: spontaneous moderate rate and volume Mood: anxious Affect: congruent to mood Thought process: logical linear Thought Content: focused on having to stay in the hospital but he is accepting of the plan Cognition: Alert and oriented Insight: fair Judgment: fair Interventions PRN's used: trazodone Justification of Continued Inpatient Treatment: The patient will be staying until Wednesday after getting his Risperidone injection and they he will be picked up by [facility] case management and support services. They will take him to [facility] to sign him up for services. He will be placed temporarily in a motel while they locate an apartment for him.
[2019-10-25] MEDS: amLODIPine 5mg tablet PO SCH (08:00)
[2019-10-25] MEDS: risperiDONE 2mg tablet PO SCH ×2 (08:15→20:25)
[2019-10-25] MEDS: docusate sod 100mg capsule PO SCH ×2 (08:15→20:24)
[2019-10-25] MEDS: mineral oil/petrolatum, white cream 113gm jar TP SCH ×2 (11:17→20:25)
[2019-10-25] MEDS: LORazepam 1 MG tablet PO PRN (11:17)
[2019-10-25] MEDS: OLANZapine 2.5MG tablet PO PRN (13:47)
--- NOTE | 2019-10-25 15:34 | NUR ---
NURSING PROGRESS NOTE Legal hold: 5270 Client on involuntary status for GD/DTS. Report received from PETAR Rahman nurse with use of SBAR. Why are they here: Pt admitted from over flow and placed on 5150 for DTS. He was found in the [place] river, refused any help stating that he wanted to drown in the river. He was extremely paranoid and delusional. Assessment What has happened this shift: Awake and up for breakfast this morning. Asking about applying cream to his feet. Reports feeling anxious about discharge, and also waiting to be discharged. Med compliant. Given Ativan and Zypexa today for increased anxiety with good effect. Isolative and guarded at times. Asking questions about discharge. Responds well to reassurance. Denies suicidal thoughts and no hallucinations. Had send out COVID nasal swab today as requested for discharge placement. Will discharge Wednesday most likely if test back. S/I, H/I: Denies A/VH: Denies Sleep: napped ADL's: Independent Group attendance: No Were Meds taken: Yes Any med S/E: None reported nor observed Mental Status Exam Appearance: disheveled Eye contact: Fair Behavior: Isolates Speech: Clear, audible Mood: Anxious Affect: congruent with mood Thought process: linear Thought Content: discharging Cognition: Alert Insight: fair Judgment: good Interventions PRN's used: Ativan, Zyprexa Therapeutic interventions: provided 1:1 assessment, encouraged and prompted pt to engage in conversation, provided therapeutic communication and active listening, medications administration/education/monitoring and monitored q15 min. safety checks. Restraints/seclusion/emergency medication: NA Justification of Continued Inpatient Treatment: Pt needs stabilization, he continues to require a safe and supportive environment with medication adjustments and monitoring to decrease risk of re-hospitalization. Per PA notes, pt lacks insight to his illness and once stabilized will return home if landlord accepts.
[2019-10-25 20:04] VITALS: BP 130/80
--- NOTE | 2019-10-25 22:35 | NUR ---
NURSING PROGRESS NOTE Legal hold: 5270 Client on involuntary status for GD/DTS. Report received from Jimenez RN nurse with use of SBAR. Why are they here: Pt admitted from over flow and placed on 5150 for DTS. He was found in the [place] river, refused any help stating that he wanted to drown in the river. He was extremely paranoid and delusional. Assessment What has happened this shift: Patient isolates in room, laying on his right side. Patient 1:1 Interview: Patient is oriented X4. The patient tells this insurance writer Im doing fine, I dont want want to answer any questions. Patient denies wanting to have his vital signs taken. Patient then agrees to vital signs if this insurance writer takes them, and if this insurance writer uses a manual B/P cuff. This was done. This insurance writer explained to insurance writer that some questions still need to be answered. The patient then spurts out, Im not suicidal, Im not hearing any voices, Im not seeing things, Im not hearing things. Patient states he had a small bowel movement. Patient nervously taps his right foot while being interviewed. He looks somewhat anxious. Patient denies need for anxiety medications at this time. S/I, H/I: Denies. A/VH: Denies. Sleep: Sleeping intermittently after shift change. ADL's: Independent. Group attendance:No attendance on days. Were Meds taken: Yes, medication compliant. Any med S/E: None reported nor observed. Mental Status Exam Appearance: Disheveled Eye contact: Fair. Behavior: Isolates in room. Speech: Clear, audible. Mood: Anxious, doesn't want to answer questions. Affect: congruent with mood. Thought process: Linear. Thought Content: Will not discuss. Cognition: Alert. Insight: fair Judgment: good Interventions PRN's used: None. Therapeutic interventions: provided 1:1 assessment, encouraged and prompted pt to engage in conversation, provided therapeutic communication and active listening, medications administration/education/monitoring and monitored q15 min. safety checks. Restraints/seclusion/emergency medication: NA Justification of Continued Inpatient Treatment: Pt needs stabilization, he continues to require a safe and supportive environment with medication adjustments and monitoring to decrease risk of re-hospitalization. Per PA notes, pt lacks insight to his illness and once stabilized will return home if landlord accepts.
[2019-10-26] MEDS: risperiDONE 2mg tablet PO SCH (07:37)
[2019-10-26] MEDS: docusate sod 100mg capsule PO SCH ×2 (07:38→20:00)
[2019-10-26] MEDS: amLODIPine 5mg tablet PO SCH (07:38)
[2019-10-26] MEDS: mineral oil/petrolatum, white cream 113gm jar TP SCH ×2 (08:00→20:00)
[2019-10-26] MEDS: polyethylene glycol 3350 17gm powd pack PO PRN (08:24)
--- NOTE | 2019-10-26 11:16 | NUR ---
Reassessment: Patient's PO intake averaging 75-100% PO intake while receiving double protein TID meeting nutrient needs. No nutrition problem. Rec: 1. continue regular diet; double eggs at breakfast/meats BIDLD 2. bowel care as needed; monitor need for additional 3. scaled weights per rx Addendum: 10/26/19 at [address] Amended: Links added.
[2019-10-26] MEDS: LORazepam 1 MG tablet PO PRN ×2 (14:43→18:15)
--- NOTE | 2019-10-26 14:49 | NUR ---
NURSING PROGRESS NOTE Legal hold: 5270 Client on involuntary status for GD/DTS. Report received from Mo RN nurse with use of SBAR. Why are they here: Pt admitted from over flow and placed on 5150 for DTS. He was [place] the [place], refused any help stating that he wanted to drown in the river. He was extremely paranoid and delusional. Assessment What has happened this shift: Anxious mood and affect this morning. Perseverates on discharge. Pacing in hallway, cannot seem to fall asleep/nap. Experiencing akathisia, Kwabena Castaneda notified. (Risperdal po to be reduced per Kwabena.) Offered Ativan but patient is paranoid he will "get addicted." Pacing hallway and looking anxious all morning and into the afternoon. Finally asked for the Ativan which he took and was able to relax and calm himself. Applied Eucerin cream to feet, they are improving. S/I, H/I: Denies A/VH: Denies Sleep: napped in afternoon ADL's: Independent Group attendance: No Were Meds taken: Yes Any med S/E: None reported nor observed Mental Status Exam Appearance: clean and showered Eye contact: Fair Behavior: Isolates Speech: Clear, audible Mood: Anxious Affect: congruent with mood Thought process: linear Thought Content: discharging Cognition: Alert Insight: fair Judgment: good Interventions PRN's used: Ativan Therapeutic interventions: provided 1:1 assessment, encouraged and prompted pt to engage in conversation, provided therapeutic communication and active listening, medications administration/education/monitoring and monitored q15 min. safety checks. Restraints/seclusion/emergency medication: NA Justification of Continued Inpatient Treatment: Pt needs stabilization, he continues to require a safe and supportive environment with medication adjustments and monitoring to decrease risk of re-hospitalization. Per PA notes, pt lacks insight to his illness and once stabilized will return home if landlord accepts.
[2019-10-26] MEDS ORDERED: risperiDONE 2mg tablet PO SCH (15:25)
[2019-10-26] MEDS ORDERED: LORazepam 1 MG tablet PO ONE (18:45)
[2019-10-26] MEDS: diphenhydrAMINE 25mg capsule PO PRN (19:04)
[2019-10-26] MEDS ORDERED: amLODIPine 5mg tablet PO ONE (19:05)
[2019-10-26] MEDS: traZODone 50mg tablet PO PRN (19:05)
[2019-10-26 20:00] VITALS: BP 180/90
--- NOTE | 2019-10-26 22:22 | NUR ---
NURSING PROGRESS NOTE Legal hold: 5270 Client on involuntary status for GD/DTS. Report received from PETAR Tim nurse with use of SBAR. Why are they here: Pt admitted from over flow and placed on 5150 for DTS. He was [place] the [place], refused any help stating that he wanted to drown in the river. He was extremely paranoid and delusional. Assessment What has happened this shift: Patient ambulating hallways post shift change. Patient approaches this radio script writer and asks for night medications early? Patient exhibits anxiety and some trembling of left hand, he paces and is impatient. Diagnosed today with akathisia, patients Risperdal has been reduced. Patient would only allow a manual blood pressure to be taken by this radio script writer. Other vital signs were done by a tech. Ativan was given for anxiety near shift change by the day RN. Per YOSVANY Gamble a second Ativan 1 mg was given. Patient requested Trazadone for sleep, it was given along with benadryl 50mg. Patient was hypertensive with a systolic B/P of 180/90. This radio script writer consulted and with and Eligio 5mg was administered. Patient calmed. Ate Pizza with other patients and retired to bed. S/I, H/I: Denies. A/VH: Denies. Sleep: Sleeping after dinner, will tally in am. ADL's: Independent. Group attendance: No Were Meds taken: Yes, with promptine. Any med S/E: Akathisia Mental Status Exam Appearance: Clean and well dressed. Eye contact: Fair. Behavior: Agitated but cooperative. Speech: Clear, audible. Mood: Anxious. Affect: Congruent with mood. Thought process: Linear. Thought Content: Wants medication for sleep. Cognition: Alert. Insight: Fair. Judgment: Fair. Interventions PRN's used: Ativan, Benadryl. Therapeutic interventions: provided 1:1 assessment, encouraged and prompted pt to engage in conversation, provided therapeutic communication and active listening, medications administration/education/monitoring and monitored q15 min. safety checks. Restraints/seclusion/emergency medication: NA Justification of Continued Inpatient Treatment: Pt needs stabilization, he continues to require a safe and supportive environment with medication adjustments and monitoring to decrease risk of re-hospitalization. Per YOSVANY notes, pt lacks insight to his illness and once stabilized will return home if landlord accepts.
[2019-10-27 08:00] VITALS: BP 112/70
[2019-10-27] MEDS: mineral oil/petrolatum, white cream 113gm jar TP SCH ×2 (08:00→19:16)
[2019-10-27] MEDS: amLODIPine 5mg tablet PO SCH (08:00)
[2019-10-27] MEDS: risperiDONE 2mg tablet PO SCH (08:17)
[2019-10-27] MEDS: docusate sod 100mg capsule PO SCH ×3 (08:20→20:00)
--- NOTE | 2019-10-27 15:17 | NUR ---
NURSING PROGRESS NOTE Legal hold: 5270 Client on involuntary status for GD/DTS. Report received from PETAR Díaz with use of SBAR. Why are they here: Pt admitted from over flow and placed on 5150 for DTS. [place], refused any help stating that he wanted to drown in the river. He was extremely paranoid and delusional. Assessment What has happened this shift: Sukhjinder continues to perseverate on whatever he is told no too. This morning it was over his nurse suggesting he take his sock off and apply the Eucerin cream to his feet. Pt said, no, you take my sock off and you put the cream on Im not doing it. This nurse continued throughout the morning educating and encouraging him to take care of himself and follow his doctors orders. He ended up refusing the mediation. S/I, H/I: Denies A/VH: Denies Sleep: napped in afternoon ADL's: Independent Group attendance: No Were Meds taken: Yes Any med S/E: Akathesia Mental Status Exam Appearance: shorts and Dodger shirt, appears to have showered Eye contact: Fair Behavior: Isolates Speech: Clear, audible Mood: Anxious, spent the day pacing, angry at times Affect: congruent with mood Thought process: linear Thought Content: concerned with leaving here Cognition: Alert Insight: fair Judgment: good Interventions PRN's used: N/A Therapeutic interventions: provided provided 1:1 assessment, provided therapeutic communication and active listening, encouraged pt to attend AM group, medications administration/education/monitoring and monitored q15 min. safety checks. Restraints/seclusion/emergency medication: NA Justification of Continued Inpatient Treatment: Pt needs stabilization, he continues to require a safe and supportive environment with medication adjustments and monitoring to decrease risk of re-hospitalization. Per PA notes, pt lacks insight to his illness and once stabilized will return home if landlord accepts.
[2019-10-27] MEDS: polyethylene glycol 3350 17gm powd pack PO PRN (19:15)
[2019-10-27] MEDS: traZODone 50mg tablet PO PRN (19:16)
[2019-10-27 20:00] VITALS: BP 180/92
[2019-10-27] MEDS: diphenhydrAMINE 25mg capsule PO PRN (21:09)
[2019-10-27] MEDS: LORazepam 1 MG tablet PO PRN (21:32)
[2019-10-27] MEDS ORDERED: LORazepam 1 MG tablet PO ONE (22:25)
[2019-10-27] MEDS: traZODone 50mg tablet PO SCH (22:40)
--- NOTE | 2019-10-27 23:44 | NUR ---
NURSING PROGRESS NOTE Legal hold: 5270 Client on involuntary status for GD/DTS. Report received from PETAR Tim with use of SBAR. Why are they here: Pt admitted from over flow and placed on 5150 for DTS. [place] was [place], refused any help stating that he wanted to drown in the river. He was extremely paranoid and delusional. Assessment What has happened this shift: Patient exhibits anxiety and paranoia following shift change. He is demanding medications early. Patient refuses to allow blood pressure from anyone but this insurance writer using a manual cuff. Patient is hypertensive this evening as he was last. B/P 180/90. An order was received for Norvasc 5mg PO. Patient had not taken his daytime Norvasc medication. A nurse teaching was given about hypertension and medication management for the same. Patient exhibits concern and promises to take his daily medications for HTN. 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 It takes much coaxing to get patient to take an Atavin, he first allowed Trazadone and Benadryl with no effect. An additional dose of Trazadone 50mg allowed patient to sleep. He had an in between order of Ativan for his major anxiety but it was not needed. S/I, H/I: Denies. A/VH: Denies Sleep: Slept after many PRN's. Will tally in am. ADL's: Independent. Group attendance: Not on days. Were Meds taken: Yes, patient is resistant however. Any med S/E: Akathesia. Mental Status Exam Appearance: Personal clothing, looking somewhat disheveled. Eye contact: Direct.. Behavior: Isolates in room, exits room with specific medication demands. Speech: Clear, audible. Mood: Anxious, pacing, labile at times, paranoid. Affect: Congruent with mood. Thought process: Linear, delusional at times. Thought Content: Believes he is not getting right med's or doses. Cognition: Alert. Insight: Poor. Judgment: Poor. Interventions PRN's used: Ativan, Benadryl, Trazadone, a now order for Norvasc for HTN. Therapeutic interventions: provided provided 1:1 assessment, provided therapeutic communication and active listening, encouraged pt to attend AM group, medications administration/education/monitoring and monitored q15 min. safety checks. Restraints/seclusion/emergency medication: NA Justification of Continued Inpatient Treatment: Pt needs stabilization, he continues to require a safe and supportive environment with medication adjustments and monitoring to decrease risk of re-hospitalization. Per PA notes, pt lacks insight to his illness and once stabilized will return home if landlord accepts.
[2019-10-28] MEDS: amLODIPine 5mg tablet PO SCH (07:52)
[2019-10-28] MEDS: risperiDONE 2mg tablet PO SCH (07:53)
[2019-10-28] MEDS: polyethylene glycol 3350 17gm powd pack PO PRN ×2 (07:57→20:13)
[2019-10-28 08:00] VITALS: BP 140/99
[2019-10-28] MEDS: mineral oil/petrolatum, white cream 113gm jar TP SCH ×2 (08:00→20:16)
[2019-10-28] MEDS: calcium carbonate 500mg chew tablet PO PRN ×3 (09:37→12:46)
[2019-10-28] MEDS: busPIRone 5mg tablet PO SCH ×2 (14:48→20:11)
--- NOTE | 2019-10-28 16:30 | NUR ---
NURSING PROGRESS NOTE Legal hold: 5270 Client on involuntary status for GD/DTS. Report received from PETAR Díaz with use of SBAR. Why are they here: [facility] [place] [facility]150 for [place]TS. [place], refused any help stating that he wanted to drown in the river. He was extremely paranoid and delusional. Assessment What has happened this shift: Today pt is perseverating on his medications and asking oral pills. He started this morning asking for Tums then Miralax. Once he received these he began asking for Buspar and something for the tremors. This went on every 15-20 minutes until he was given the Buspar and knew he had an order for a medication to stop the tremors. Education provided both orally and in writing on his prescribed medications. Pt able to verbalize the names of his medication by repeating each one back to this nurse. Perseris injection is due on Wednesday before discharge. Buspar started today. Atenolol added to treat tremors. S/I, -H/I: Denies A/VH: Denies Sleep: Up all shift he will lay on his bed for a few minutes but remains awake ADL's: Independent Group attendance: No Were Meds taken: Yes Any med S/E: Akathesia Mental Status Exam Appearance: wearing the same clothes he wore yesterday Eye contact: Fair Behavior: Isolates, paces the halls Speech: Clear, audible Mood: Anxious, spent the day pacing, played corn hole by himself Affect: congruent with mood Thought process: linear Thought Content: worked on knowing his medications Cognition: Alert Insight:Improved Judgment:poor Interventions PRN's used: N/A Therapeutic interventions: provided 1:1 assessment with therapeutic communication and active listening, encouraged pt to attend groups, medications administration/education/monitoring and monitored q15 min. safety checks. Restraints/seclusion/emergency medication: NA Justification of Continued Inpatient Treatment: Pt is being stabilized on medications after a serious suicide attempt. He has been started on a WHITAKER, Perseris, and oral pills to prevent decompensation and re-hospitalization.
[2019-10-28] MEDS ORDERED: busPIRone 5mg tablet PO SCH (20:00)
[2019-10-28] MEDS: traZODone 50mg tablet PO SCH (20:09)
[2019-10-28] MEDS: atenolol 25mg tablet PO SCH (20:15)
[2019-10-28] MEDS: docusate sod 100mg capsule PO SCH (20:16)
--- NOTE | 2019-10-29 01:10 | NUR ---
NURSING PROGRESS NOTE Legal hold: 5270 Client on involuntary status for GD/DTS. Report received from PETAR Tim with use of SBAR. Why are they here: Pt admitted from over flow and placed on 5150 for DTS. He was found in the [place] river, refused any help stating that he wanted to drown in the river. He was extremely paranoid and delusional. Assessment What has happened this shift: This patient is pacing halls right after shift change. The patient approached this caption writer and made it known that he needed specific medications at a specific time, he is quite anxious but can be redirected. Paranoia remains. The patient allows a manual blood pressure, HTN remains present. Patients temperament is somewhat improved from the previous overnight stocker. Patient still complains of shaking of extremities, it is less notible than the previous night. Patient retired to sleep with use of PRN's. S/I, H/I: Denies. A/VH: Denies Sleep: Slept after many PRN's. Will tally in am. ADL's: Independent. Group attendance: Not on days. Were Meds taken: Yes, patient is resistant however. Any med S/E: Akathesia. Mental Status Exam Appearance: Personal clothing, looking somewhat disheveled. Eye contact: Direct.. Behavior: Isolates in room, exits room with specific medication demands. Speech: Clear, audible. Mood: Anxious, pacing, labile at times, paranoid. Affect: Congruent with mood. Thought process: Linear, delusional at times. Thought Content: Medications and discharge. Cognition: Alert. Insight: Poor. Judgment: Poor. Interventions PRN's used: Trazadone, Benadryl. Therapeutic interventions: provided provided 1:1 assessment, provided therapeutic communication and active listening, encouraged pt to attend AM group, medications administration/education/monitoring and monitored q15 min. safety checks. Restraints/seclusion/emergency medication: NA Justification of Continued Inpatient Treatment: Pt needs stabilization, he continues to require a safe and supportive environment with medication adjustments and monitoring to decrease risk of re-hospitalization. Per PA notes, pt lacks insight to his illness and once stabilized will return home if landlord accepts.
[2019-10-29] MEDS: atenolol 25mg tablet PO SCH ×2 (07:59→19:13)
[2019-10-29] MEDS: busPIRone 5mg tablet PO SCH ×3 (07:59→20:04)
[2019-10-29 08:00] VITALS: BP 120/86
[2019-10-29] MEDS: amLODIPine 5mg tablet PO SCH (08:00)
[2019-10-29] MEDS: mineral oil/petrolatum, white cream 113gm jar TP SCH ×2 (08:00→19:24)
[2019-10-29] MEDS: calcium carbonate 500mg chew tablet PO PRN (08:00)
[2019-10-29] MEDS: polyethylene glycol 3350 17gm powd pack PO PRN ×2 (08:00→19:37)
[2019-10-29] MEDS: docusate sod 100mg capsule PO SCH ×2 (08:01→19:11)
[2019-10-29] MEDS: LORazepam 1 MG tablet PO PRN ×2 (11:23→16:24)
--- NOTE | 2019-10-29 14:12 | NUR ---
NURSING PROGRESS NOTE Legal hold: 5270 Client on involuntary status for GD/DTS. Report received from PETAR Díaz with use of SBAR. Why are they here: Pt admitted from over flow and placed on 5150 for DTS. He was [place] the [place], refused any help stating that he wanted to drown in the river. He was extremely paranoid and delusional. Assessment What has happened this shift: Today pt is perseverating on leaving and when his tremors will stop. Pt was started on atenolol last night receiving his second dose today. He showered, shaved and applied Eucerin cream to his feet today. Pt also was given Miralax c/o of "mild constipation." Reports a "small BM yesterday or the day before." Pt isolates pacing the halls with a headset on or plays corn hole alone in the halls. S/I, -H/I: Denies A/VH: Denies Sleep: Awake and out of bed all shift. ADL's: Independent Group attendance: No Were Meds taken: Yes Any med S/E: Akathesia Mental Status Exam Appearance: Showered, but put on the same clothes as he had on Eye contact: Fair Behavior: Isolates, paces halls Speech: Clear, audible Mood: Anxious, spent the day pacing, played corn hole by himself Affect: Congruent with mood Thought process: linear Thought Content: Focused on leaving Cognition: Alert Insight: Improved Judgment: Poor Interventions PRN's used: N/A Therapeutic interventions: provided 1:1 assessment with therapeutic communication and active listening, encouraged pt to attend groups, medications administration/education/monitoring and monitored q15 min. safety checks. Restraints/seclusion/emergency medication: NA Justification of Continued Inpatient Treatment: Pt is being stabilized on medications after a serious suicide attempt. He has been started on a WHITAKER, Perseris, and oral pills to prevent decompensation and re-hospitalization.
[2019-10-29] MEDS ORDERED: benztropine 1mg tablet PO ONE (18:45)
[2019-10-29] MEDS: traZODone 50mg tablet PO PRN (19:14)
[2019-10-29 20:00] VITALS: BP 150/100
[2019-10-29] MEDS: diphenhydrAMINE 25mg capsule PO PRN (20:04)
[2019-10-29] MEDS: traZODone 50mg tablet PO SCH (22:25)
--- NOTE | 2019-10-30 03:07 | NUR ---
NURSING PROGRESS NOTE Legal hold: 5270 Client on involuntary status for GD/DTS. Report received from PETAR Tim with use of SBAR. Why are they here: Pt admitted from over flow and placed on 5150 for DTS. He was [place] the [place], refused any help stating that he wanted to drown in the river. He was extremely paranoid and delusional. Assessment What has happened this shift: Patient exhibits mild anxiety only following shift change. He is ambulatory, less delusional than previous nights, he is cooperative with staff. Cogentin was given to help control shaking. Patient is happy he will be discharged to a motel room this Wednesday. Foot care was done. Benadryl and Trazadone were given for sleep. Both were effective. S/I, H/I: Denies. A/VH: Denies Sleep: Sleeping well. ADL's: Independent. Group attendance: Not on days. Were Meds taken: Yes, medication compliant with minimal discussion. . Any med S/E: Akathesia. Mental Status Exam Appearance: Personal clothing, looking somewhat disheveled. Eye contact: Direct.. Behavior: Isolates in room, exits room with specific medication demands. Speech: Clear, audible. Mood: Mild anxiety, cooperative. Affect: Congruent with mood. Thought process: Mostly linear this shift. Thought Content: Medications and discharge. Cognition: Alert. Insight: Poor. Judgment: Poor. Interventions PRN's used: Trazadone, Benadryl. Therapeutic interventions: provided provided 1:1 assessment, provided therapeutic communication and active listening, encouraged pt to attend AM group, medications administration/education/monitoring and monitored q15 min. safety checks. Restraints/seclusion/emergency medication: NA Justification of Continued Inpatient Treatment: Pt needs stabilization, he continues to require a safe and supportive environment with medication adjustments and monitoring to decrease risk of re-hospitalization. Per PA notes, pt lacks insight to his illness and once stabilized will return home if landlord accepts.
[2019-10-30] MEDS: atenolol 25mg tablet PO SCH (07:48)
[2019-10-30] MEDS: amLODIPine 5mg tablet PO SCH (07:49)
[2019-10-30] MEDS: busPIRone 5mg tablet PO SCH ×2 (07:49→12:09)
[2019-10-30] MEDS: docusate sod 100mg capsule PO SCH (07:52)
[2019-10-30 08:00] VITALS: BP 114/81
[2019-10-30] MEDS: mineral oil/petrolatum, white cream 113gm jar TP SCH (09:49)
--- NOTE | 2019-10-30 10:00 | NUR ---
Group Therapy: Process Group This Clinicians goal for this process group were as follows: (1) Introduce and provide psychoeducation on Cisneros ABC method. (2) Practice working through Cisneros ABC method using examples provided by this Clinician. (3) Encourage Patients to process some of their own reoccurring situations utilizing Cisneros ABC methodology. (4) Process Clients thoughts and reflections on this topic within the group milieu. Patient identified experiencing the following levels of anxiety, depression, and anger/irritability while present in the group milieu. Anxiety: 12/22 Depression: 10 Anger/irritability: 12/22 Patient presented as properly oriented to person, place, and situation during the process group. Patient was dressed in nondescript, personal clothing that were appropriate within the milieu. Psychomotor activity was unremarkable. Patient's thought content was clear, and concrete. Per this Clinician's impression, based upon Patient's comments, he was perseverating on the notions that, "Lies" had been written down about him in his chart and that he was upset about this. Patient's thought process was clear, coherent, and linear. This Clinician did not observe Patient responding to any internal stimuli during session. The rate, latency, and tone of Client's speech was within normal limits. Patient sustained regular eye contact with this Clinician when he spoke to him. Patient presented in calm euthymic mood, with flat affect during the process group. Patient presented as cooperative during the process group. Patient presented as largely verbally subdued within the group milieu. On one occasion, this Clinician attempted to engage Patient in conversation, during which time he responded, "I am just here to listen." Patient did not participate during the discussion of Blayne' ABC CBT methodology. Percy Palmer MA, RASHAAD Addendum: 10/31/19 at 0900 by Percy Palmer SS Amended: Links added.
[2019-10-30] MEDS ORDERED: RISPERIDONE SQ ONE ×3 (11:55→12:05)
[2019-10-30] MEDS ORDERED: BUSP10TA3 PO (11:56)
[2019-10-30] MEDS ORDERED: NOR5T PO (11:56)
[2019-10-30] MEDS ORDERED: TRAZ-251 PO (11:56)
[2019-10-30] MEDS ORDERED: DOCU100C40 PO (11:56)
[2019-10-30] MEDS ORDERED: BENZ1TAB7 PO (11:59)
--- NOTE | 2019-10-30 12:45 | NUR ---
DISCHARGE NOTE Pt discharged from [facility] at 1245. He was picked up by staff from [facility] and taken to access team at [facility]. Prior to D/C personal inventory was released and signed off by the pt and NASRA Gamez. He was given Perseris 90mg SQ, MRSA swab and Buspar PO. Pt declined smoking cessation as he is not a smoker.
--- NOTE | 2019-10-30 13:27 | NUR ---
1:1 Presenting Issues: Pt's scheduled to d/c today after receiving his injection of Risperidal. Pt exhibited increase of anxiety associated w/d/c. Interventions: SS met w/pt @ bedside and provided support via CBT strategies to decrease anxiety. Per session, pt was able to verbalize understanding of dcp, and agreed to comply with continuing medication support services & treatment via [facility]. Pt was perseverating on changing his diagnosis, he believes that he has Social Anxiety DX as oppose to Schizophrenia. Pt also reports that his mother had similar issues, "she was chaotic". Pt agreed to discuss diagnosis changes with outpatient provider. Plan: Pt d/c-ing today after receiving injection. Winter Edwards LCSW Addendum: 10/30/19 at 1414 by Winter Edwards Amended: Links added.
--- NOTE | 2019-10-30 14:19 | NUR ---
D/C Pt d/c and picked up by [facility] and transported to [facility] to meet w/[facility]. SS referral closed. JENNIFER SantosW Addendum: 10/30/19 at 1421 by Winter Edwards Amended: Links added.
== END 2019-10-30 12:40 | disposition home or self-care (01) | DRG 885 ==
LOC: ADULT MH 14:08
PROVIDERS: ADMIT Psychiatry & Neurology Psychiatry; ATTEND Psychiatry & Neurology Psychiatry
DX: F20.0 Paranoid schizophrenia (principal); I10 Essential (primary) hypertension; F32.9 Major depressive disorder, single episode, unspecified; Z79.899 Other long term (current) drug therapy; Z20.828 Contact with and (suspected) exposure to other viral communicable diseases
CPT/HCPCS: 36415; 80053; 80061; 80305; 80320; 81003; 83036; 84443; 85025; 87081; 87635; 99285; Q0163

== ENCOUNTER 2019-12-17 15:06 | Emergency (ER) | payer MEDICARE, MEDICAID ==
[~2019-12-17] VITALS: Ht 190.5 cm; Wt 122.7 kg
[~2019-12-17 15:06] MED LIST changes: +BUSP10TA3 PO; -DIPH25CA83 PO; +DOCU100C40 PO; -NO HOME MEDS; +NOR5T PO; -OMEP20CA15 PO; -RISP120S SQ; -RISP2TAB3 PO; +TRAZ-251 PO
[2019-12-17 15:10] VITALS: BP 164/71
[2019-12-17] MEDS ORDERED: haloperidol lactate 5mg/ml inj IM ONE (15:15)
--- NOTE | 2019-12-17 15:20 | NUR ---
PT REFUSING TO ANSWER QUESTIONS, VS, AND ANY TREATMENTS AT THIS TIME.
[2019-12-17] MEDS ORDERED: LORazepam 2 mg/ml vial IM ONE (15:25)
--- NOTE | 2019-12-17 15:30 | NUR ---
Pt refusing to answer questions regarding suicide risk screening.
[2019-12-17 16:08] LABS: BASOPHILS # (AUTO) 0.1 X10'3 (0-0.2); BASOPHILS % (AUTO) 0.6 % (0-1); EOSINOPHILS % (AUTO) 0.2 % (0-6); HEMATOCRIT 45.5 % (42.0-52.0); HEMOGLOBIN 15.5 g/dl (14.0-17.9); LYMPHOCYTES # (AUTO) 1.4 X10'3 (1.1-4.8); LYMPHOCYTES % (AUTO) 11.6 % (21-51); MEAN CORPUSCULAR HEMOGLOBIN 29.4 PG (27.0-31.0); MEAN CORPUSCULAR HGB CONC 34.2 g/dL (33.0-36.5); MEAN CORPUSCULAR VOLUME 86.2 FL (78-98); MEAN PLATELET VOLUME 8.4 FL (7.4-10.4); MONOCYTES # (AUTO) 0.9 X10'3 (0-0.9); MONOCYTES % (AUTO) 7.5 % (2-12); NEUTROPHILS # (AUTO) 9.4 X10'3 (1.8-7.7); NEUTROPHILS % (AUTO) 80.1 % (42-75); PLATELET COUNT 332 X10'3 (140-440); RED BLOOD COUNT 5.28 X10'6 (4.70-6.10); RED CELL DISTRIBUTION WIDTH 13.1 % (11.5-14.5); WHITE BLOOD COUNT 11.7 X10'3 (4.5-11.0)
[2019-12-17 16:21] LABS: ALANINE AMINOTRANSFERASE 27 U/L (12-78); ALBUMIN 4.7 G/DL (3.4-5.0); ALBUMIN/GLOBULIN RATIO 1.4 (1.1-1.5); ALKALINE PHOSPHATASE 70 IU/L (46-116); ANION GAP 9 (8-16); ASPARTATE AMINO TRANSFERASE 17 U/L (10-37); BILIRUBIN,TOTAL 0.9 MG/DL (0.1-1.0); BLOOD UREA NITROGEN 20 MG/DL (7-18); BUN/CREATININE RATIO 10.6 (5.4-32.0); CALCIUM 9.6 MG/DL (8.5-10.1); CHLORIDE 104 MMOL/L (99-107); CREATININE 1.89 MG/DL (0.60-1.10); GLUCOSE 104 MG/DL (70-104); POTASSIUM 3.6 MMOL/L (3.5-5.1); SODIUM 141 MMOL/L (135-145); TOTAL CARBON DIOXIDE 27.8 MMOL/L (24-32); eGFR 39 ML/MIN
[2019-12-17 16:29] LABS: ETHANOL < 0.010 GM/DL (0.0-0.010)
[2019-12-17] MEDS ORDERED: normal saline 1000ML IV soln IVB ONE (17:00)
--- NOTE | 2019-12-17 18:30 | NUR ---
IV started in R anticubital, 1st bag of normal saline hung. Service Crew Supervisor educated pt on the IV and why he needed the IV, pt refused to respond.
--- NOTE | 2019-12-17 19:00 | NUR ---
Pt ripped out IV,Underwear Hemmer stressed the importance of keeping the IV in. Pt responmds, "I don't need it." Dr. Ontiveros consulted, IV D/Cd. Pt is drinking PO fluids.
--- NOTE | 2019-12-17 19:56 | NUR ---
Encouraging PT to pee in order to collect urine sample. Pt keeps saying "I don't need to go right now, give me my boundaries." Pt recieved 300ML normal saline before ripping IV out. PO intake of 400 ml (water).
--- NOTE | 2019-12-17 20:50 | NUR ---
PT SEEN BY [facility] AND PLACED ON A 5150
--- NOTE | 2019-12-17 21:00 | NUR ---
Paperhanger encourages pt to try to urinate, pt states "I don't have to!" "Stop asking me, I don't have to!"
--- NOTE | 2019-12-17 21:10 | NUR ---
Pt asked about his home medications, he responds, "I don't take medications."
--- NOTE | 2019-12-17 21:30 | NUR ---
Health Inspector tries to obtain urine again, internal communications writer offers to straight cath pt, he states "Do not touch me ,you are going aginst my rights, I don't have to! "
--- NOTE | 2019-12-17 23:10 | NUR ---
Pt resting on back, snoring, RR 16
--- NOTE | 2019-12-18 02:19 | NUR ---
Pt remains on his back RR 14
--- NOTE | 2019-12-18 04:33 | NUR ---
Pt asleep on R side breath even and unlabored
--- NOTE | 2019-12-18 05:03 | NUR ---
Pt is laying in bed talking to himself, will not speak to keno writer / runner
--- NOTE | 2019-12-18 05:44 | NUR ---
PT refused vital signs
--- NOTE | 2019-12-18 05:59 | NUR ---
PT gets up to use the restroom, nurse approaches pt and asks him to please urinate in the cup to get a specimin, pt refuses and says , "no I don't have to I am not a drug addict you don't know me!" Nurse Informatics Educator tries to get pt to urinate into a urinal but he adimantly refuses.
[2019-12-18] MEDS ORDERED: diphenhydrAMINE 50 mg/ml inj IM ONE (06:30)
[2019-12-18] MEDS ORDERED: haloperidol lactate 5mg/ml inj IM ONE (06:30)
[2019-12-18] MEDS ORDERED: LORazepam 2 mg/ml vial IM ONE (06:30)
--- NOTE | 2019-12-18 06:56 | NUR ---
pt is worked up speaking non-sense non stop. pt has paranoid ideas
--- NOTE | 2019-12-18 08:00 | NUR ---
pt is awake. no issues at this time
--- NOTE | 2019-12-18 09:00 | NUR ---
pt continues to make off statements. no issues at this time
[2019-12-18] MEDS ORDERED: amlodipine PO (13:13)
== END 2019-12-18 13:12 ==
LOC: ER 15:07
DX: F23 Brief psychotic disorder (principal); Z79.899 Other long term (current) drug therapy
CPT/HCPCS: 36415; 71045; 80053; 80320; 85025; 96372; 99285; J1200; J1630; J2060

== ENCOUNTER → 2022-11-20 | Outpatient (CLI) | payer MEDICARE, MEDICAID ==
[~2022-11-20] MED LIST changes: +ATOR20TA66 PO; -BUSP10TA3 PO; +CHOL50CA2 PO; +DULO-31 PO; +GABA300C PO; +LISI5TAB22 PO; -NOR5T PO; +OMEP20CA16 PO; +PALI234D IM; -TRAZ-251 PO; +TRAZ-256 PO
== END | disposition home or self-care (01) ==
LOC: RAD 13:00
PROVIDERS: ATTEND Nurse Practitioner Psychiatric/Mental Health
DX: Z79.899 Other long term (current) drug therapy (principal)
CPT/HCPCS: 93005

== ENCOUNTER 2024-09-19 16:40 | Outpatient (CLI) | payer MEDICAID, BC ==
--- NOTE | 2024-09-19 17:00 | ELECTROCARDIOGRAPH REPORT ---
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 LIT Morrison Measurements Intervals [place] Rate: 72 P: 10 CO: 148 QRS: 17 QRSD: 108 T: 27 QT: 391 QTc: 428 Interpretive Statements Sinus rhythm Abnormal R-wave progression, early transition Electronically Signed On 09-20-2024 17:25:[address] LIT Morrison Please click the below link to view image of tracing.
== END 2024-09-19 23:59 | disposition home or self-care (01) ==
LOC: RAD 16:40
PROVIDERS: ATTEND Nurse Practitioner Psychiatric/Mental Health
DX: R94.31 Abnormal electrocardiogram [ECG] [EKG] (principal); F20.9 Schizophrenia, unspecified; Z79.899 Other long term (current) drug therapy
CPT/HCPCS: 93005